=== PATIENT | male | born 1955 | race Caucasian/White ===

== ENCOUNTER 2021-11-09 22:53 | Inpatient (IN) | payer MEDICAID, SELFPAY ==
[~2021-11-09] VITALS: Ht 177.8 cm; Wt 77.1 kg
[2021-11-09 22:55] VITALS: BP_SYST 126
[2021-11-09] MEDS ORDERED: LIDOCAINE 1% 10 MG/ML, 20 ML MDV INJ ONE (23:30)
[2021-11-09] MEDS ORDERED: NALOXONE HCL 2 MG/2 ML SYR IVP ONE (23:30)
[2021-11-09] MEDS ORDERED: NACL 0.9% 1,000 ML IV ONE (23:45)
[2021-11-10 00:07] LABS: CALCIUM 9.4 mg/dL (8.4-11.0)
[2021-11-10 00:09] LABS: MEAN CORPUSCULAR HEMOGLOBIN 29 pg (27-31); MEAN CORPUSCULAR HGB CONC 33 % (32-36); MEAN CORPUSCULAR VOLUME 87 fL (79.0-98.0); PLATELET COUNT (AUTO) 78 K/uL (130-430); RED BLOOD CELL COUNT(AUTO) 7.03 MIL/uL (4.2-6.2); RED CELL DISTRIBUTION WIDTH 14.7 % (9.0-15.0); WHITE BLOOD COUNT (AUTO) 19.1 K/uL (4.8-10.8)
[2021-11-10 00:33] LABS: ANION GAP 17 (5-15); CHLORIDE 117 mmol/L (98-107); CREATININE 5.49 mg/dL (0.55-1.30); POTASSIUM 5.2 mmol/L (3.5-5.1); SODIUM SERUM 156 mmol/L (136-145)
[2021-11-10 00:35] LABS: HEMOGLOBIN 20.4 g/dL (14.0-18.0)
[2021-11-10 00:36] LABS: HEMATOCRIT 61.2 % (36-54)
[2021-11-10 00:38] LABS: ALANINE AMINOTRANSFERASE 14 U/L (12-78); ALBUMIN 3.4 g/dL (3.4-4.8); ASPARTATE AMINOTRANSFERASE 18 U/L (10-37); TOTAL BILIRUBIN 1.1 mg/dL (0.0-1.0)
[2021-11-10 00:47] LABS: GLUCOSE 435 mg/dL (70-99)
[2021-11-10 00:49] LABS: GFR AFRICAN AMERICAN 13 mL/min (>90)
[2021-11-10 00:50] LABS: UREA NITROGEN, BLOOD 158 mg/dL (8-21)
[2021-11-10 01:00] LABS: ACETAMINOPHEN < 1 ug/mL (1-30); ALCOHOL, BLOOD < 3 mg/dL (<10)
[2021-11-10] MEDS ORDERED: INSULIN REGULAR, HUMAN 10 UNITS/0.1 ML INJ IVP ONE (01:00)
[2021-11-10] MEDS ORDERED: cefTRIAXone 2 GM VIAL ONE (01:29)
[2021-11-10 01:39] LABS: ATYPICAL LYMPHOCYTES % 0 % (0-0); BAND % (MANUAL) 0 % (0-6); BASOPHILS % (MANUAL) 0 % (0-2); BLASTS, MANUAL % 0 % (0-0); EOSINOPHILS % (MANUAL) 0 % (0-7); LYMPHOCYTES % (MANUAL) 10 % (20-46); METAMYELOCYTES % 0 % (0-0); MONOCYTES % (MANUAL) 7 % (0-11); MYELOCYTES % 0 % (0-0); OTHER CELLS,MANUAL % 0 (0-0); PROMYELOCYTES % 0 % (0-0)
[2021-11-10 01:41] LABS: LYMPHOCYTES % (AUTO) 5.5 % (20.5-51.5); NEUTROPHILS % (AUTO) 85.3 % (40.0-70.0)
[2021-11-10 01:42] LABS: LYMPHOCYTES # (AUTO) 1.1 K/uL (1.0-5.5); MONOCYTES # (AUTO) 1.7 K/uL (0.0-1.0); NEUTROPHILS # (AUTO) 16.3 K/uL (1.8-7.7)
[2021-11-10 01:44] LABS: BASOPHILS % (AUTO) 0.2 % (0.0-2.0)
[2021-11-10] MEDS ORDERED: 0.45% NACL 1,000 ML IV ONE (02:30)
[2021-11-10] MEDS ORDERED: PIPERACILLIN/TAZOBACTAM 2.25 GM in NS 50 ML IV SCH (08:00)
[2021-11-10 08:39] LABS: CALCIUM 8.4 mg/dL (8.4-11.0); CREATININE 5.33 mg/dL (0.55-1.30); POTASSIUM 4.2 mmol/L (3.5-5.1)
[2021-11-10 08:43] LABS: TOTAL BILIRUBIN 0.7 mg/dL (0.0-1.0)
[2021-11-10 08:48] LABS: BASOPHILS # (AUTO) 0.1 K/uL (0.0-0.2); BASOPHILS % (AUTO) 0.2 % (0.0-2.0); EOSINOPHILS % (AUTO) 0.2 % (0.0-4.0); LYMPHOCYTES # (AUTO) 1.5 K/uL (1.0-5.5); LYMPHOCYTES % (AUTO) 7.4 % (20.5-51.5); MEAN CORPUSCULAR HEMOGLOBIN 29 pg (27-31); MEAN CORPUSCULAR HGB CONC 33 % (32-36); MEAN CORPUSCULAR VOLUME 87 fL (79.0-98.0); MONOCYTES # (AUTO) 2.2 K/uL (0.0-1.0); MONOCYTES % (AUTO) 10.4 % (1.7-9.3); NEUTROPHILS % (AUTO) 81.8 % (40.0-70.0); PLATELET COUNT (AUTO) 88 K/uL (130-430); RED BLOOD CELL COUNT(AUTO) 6.89 MIL/uL (4.2-6.2); RED CELL DISTRIBUTION WIDTH 14.6 % (9.0-15.0); WHITE BLOOD COUNT (AUTO) 20.8 K/uL (4.8-10.8)
[2021-11-10 08:55] LABS: HEMATOCRIT 60.1 % (36-54)
[2021-11-10] MEDS: 0.45% NACL 1,000 ML IV SCH ×3 (11:00→21:00)
[2021-11-10] MEDS ORDERED: PANTOPRAZOLE SODIUM 40 MG/VIAL (PROTONIX) IVP ONE (11:15)
[2021-11-10 11:45] LABS: TOTAL IRON BIND. CAPACITY 188 ug/dL (250-450)
[2021-11-10] MEDS ORDERED: INSULIN REGULAR, HUMAN 10 UNITS/0.1 ML INJ ONE (13:11)
[2021-11-10] MEDS: INSULIN REGULAR, HUMAN 100 UNITS/ML, 10 ML VIAL (humuLIN R) SUBCUT PRN (13:22)
[2021-11-10] MEDS ORDERED: PIPERACILLIN/TAZOBACTAM 2.25 GM VIAL IV ONE ×2 (14:04)
[2021-11-10] MEDS: PIPERACILLIN/TAZOBACTAM 2.25 GM in NS 50 ML IV SCH ×2 (14:56→23:17)
[2021-11-10 15:21] LABS: BILIRUBIN,URINE NEGATIVE (NEGATIVE); BLOOD, URINE 2+ (NEGATIVE); CLARITY/URINE CLEAR (CLEAR); COLOR,URINE YELLOW (YELLOW); GLUCOSE,URINE NEGATIVE (NEGATIVE); KETONES,URINE NEGATIVE (NEGATIVE); LEUKOCYTE ESTERASE ,URINE 1+ (NEGATIVE); NITRITE, URINE NEGATIVE (NEGATIVE); PROTEIN URINE 1+ (NEGATIVE); UROBILINOGEN,URINE 0.2 (0.2-1.0)
[2021-11-10 15:29] LABS: BACTERIA,URINE FEW /HPF (None Seen); MUCUS,URINE None Seen /LPF (None Seen)
[2021-11-10 15:33] LABS: BARBITURATE, URINE NEGATIVE (NEG <=200); BENZODIAZEPINE, URINE NEGATIVE (NEG <=150); CANNABINOID, URINE NEGATIVE (NEG <=50); COCAINE, URINE NEGATIVE (NEG <=150); METHAMPHETAMINES SCREEN,URINE POSITIVE (NEG <=500); OPIATE, URINE NEGATIVE (NEG <=100); PHENCYCLIDINE SCREEN,URINE NEGATIVE (NEG <=25); UR TRICYCLIC ANTIDEPRESSANTS NEGATIVE (NEG <=300); URINE AMPHETAMINE NEGATIVE (NEG <=500); URINE METHADONE NEGATIVE (NEG <=200); URINE OXYCODONE SCREEN NEGATIVE (NEG <=100); URINE PROPOXYPHENE SCREEN NEGATIVE (NEG <=300)
[2021-11-10 17:00] VITALS: BP_SYST 136
[2021-11-10 18:06] VITALS: BP_SYST 136
[2021-11-10 18:29] VITALS: BP_SYST 136
[2021-11-10 20:00] VITALS: BP_SYST 106
[2021-11-10] MEDS: PANTOPRAZOLE SODIUM 40 MG/VIAL (PROTONIX) IVP SCH (23:25)
[2021-11-10 23:59] LABS: BARBITURATE, URINE NEGATIVE (NEG <=200)
[2021-11-11] VITALS: BP_SYST 108
[2021-11-11] LABS: BENZODIAZEPINE, URINE NEGATIVE (NEG <=150); CANNABINOID, URINE NEGATIVE (NEG <=50); COCAINE, URINE NEGATIVE (NEG <=150); METHAMPHETAMINES SCREEN,URINE POSITIVE (NEG <=500); OPIATE, URINE NEGATIVE (NEG <=100); PHENCYCLIDINE SCREEN,URINE NEGATIVE (NEG <=25); UR TRICYCLIC ANTIDEPRESSANTS NEGATIVE (NEG <=300); URINE AMPHETAMINE NEGATIVE (NEG <=500); URINE METHADONE NEGATIVE (NEG <=200); URINE OXYCODONE SCREEN NEGATIVE (NEG <=100); URINE PROPOXYPHENE SCREEN NEGATIVE (NEG <=300)
[2021-11-11] MEDS: 0.45% NACL 1,000 ML IV SCH ×5 (00:39→21:48)
[2021-11-11 05:00] VITALS: BP_SYST 131
[2021-11-11] MEDS: PIPERACILLIN/TAZOBACTAM 2.25 GM in NS 50 ML IV SCH ×4 (05:06→21:07)
[2021-11-11 08:00] VITALS: BP_SYST 115
[2021-11-11] MEDS: PANTOPRAZOLE SODIUM 40 MG/VIAL (PROTONIX) IVP SCH (08:54)
[2021-11-11] MEDS ORDERED: PANTOPRAZOLE SODIUM 40 MG/VIAL (PROTONIX) IVP ONE (09:00)
[2021-11-11 09:07] LABS: FOLATE (FOLIC ACID) 16.7 ng/mL (>3.0)
[2021-11-11] MEDS ORDERED: D5W 1,000 ML IV PRN (11:00)
[2021-11-11] MEDS ORDERED: GLUCOSE (DEXTROSE) ORAL GEL -Adults PO PRN (11:00)
[2021-11-11] MEDS ORDERED: DEXTROSE 50%-WATER 50 ML DISP.SYRIN IVP PRN (11:00)
[2021-11-11 12:00] VITALS: BP_SYST 122
[2021-11-11 15:14] LABS: CALCIUM 7.6 mg/dL (8.4-11.0); CREATININE 4.65 mg/dL (0.55-1.30); POTASSIUM 4.4 mmol/L (3.5-5.1)
[2021-11-11 15:20] LABS: ALBUMIN 2.2 g/dL (3.4-4.8); TOTAL BILIRUBIN 1.2 mg/dL (0.0-1.0)
[2021-11-11] MEDS: ASPIRIN 81 MG TAB.CHEW PO ONE ×2 (16:13→16:45)
[2021-11-11 16:52] LABS: RED BLOOD CELL COUNT(AUTO) 5.67 MIL/uL (4.2-6.2); WHITE BLOOD COUNT (AUTO) 23.1 K/uL (4.8-10.8)
[2021-11-11 16:53] LABS: HEMATOCRIT 49.7 % (36-54); MEAN CORPUSCULAR HEMOGLOBIN 28 pg (27-31); MEAN CORPUSCULAR HGB CONC 32 % (32-36); MEAN CORPUSCULAR VOLUME 88 fL (79.0-98.0); PLATELET COUNT (AUTO) 48 K/uL (130-430); RED CELL DISTRIBUTION WIDTH 14.6 % (9.0-15.0)
[2021-11-11 16:58] VITALS: BP_SYST 120
[2021-11-11] MEDS: INSULIN REGULAR, HUMAN 100 UNITS/ML, 10 ML VIAL (humuLIN R) SUBCUT PRN ×2 (18:31→21:16)
[2021-11-11 19:49] LABS: BAND % (MANUAL) 5 % (0-6); BASOPHILS % (MANUAL) 0 % (0-2); EOSINOPHILS % (MANUAL) 0 % (0-7); LYMPHOCYTES % (MANUAL) 2 % (20-46); MONOCYTES % (MANUAL) 5 % (0-11)
[2021-11-11 20:00] VITALS: BP_SYST 157
[2021-11-11] MEDS: LINEZOLID 300 ML IV SCH (21:43)
[2021-11-12 01:35] VITALS: BP_SYST 90
[2021-11-12] MEDS: 0.45% NACL 1,000 ML IV SCH ×4 (01:59→20:03)
[2021-11-12] MEDS: PIPERACILLIN/TAZOBACTAM 2.25 GM in NS 50 ML IV SCH ×4 (01:59→20:00)
[2021-11-12 06:42] LABS: BASOPHILS % (AUTO) 0.2 % (0.0-2.0); EOSINOPHILS # (AUTO) 0.1 K/uL (0.0-0.4); EOSINOPHILS % (AUTO) 0.6 % (0.0-4.0); HEMATOCRIT 46.5 % (36-54); HEMOGLOBIN 15.3 g/dL (14.0-18.0); LYMPHOCYTES # (AUTO) 1.3 K/uL (1.0-5.5); LYMPHOCYTES % (AUTO) 6.7 % (20.5-51.5); MEAN CORPUSCULAR HEMOGLOBIN 29 pg (27-31); MEAN CORPUSCULAR HGB CONC 33 % (32-36); MEAN CORPUSCULAR VOLUME 87 fL (79.0-98.0); MONOCYTES # (AUTO) 2.3 K/uL (0.0-1.0); MONOCYTES % (AUTO) 11.4 % (1.7-9.3); NEUTROPHILS # (AUTO) 16.3 K/uL (1.8-7.7); NEUTROPHILS % (AUTO) 81.1 % (40.0-70.0); RED BLOOD CELL COUNT(AUTO) 5.35 MIL/uL (4.2-6.2); RED CELL DISTRIBUTION WIDTH 14.7 % (9.0-15.0); WHITE BLOOD COUNT (AUTO) 20.1 K/uL (4.8-10.8)
[2021-11-12 07:31] LABS: CREATININE 3.59 mg/dL (0.55-1.30); POTASSIUM 4.1 mmol/L (3.5-5.1); TOTAL BILIRUBIN 1.3 mg/dL (0.0-1.0)
[2021-11-12 07:34] LABS: PLATELET COUNT (AUTO) 46 K/uL (130-430)
[2021-11-12 08:00] VITALS: BP_SYST 88
[2021-11-12 08:15] VITALS: BP_SYST 121
[2021-11-12] MEDS ORDERED: 0.45% NACL 1,000 ML IV ONE (08:15)
[2021-11-12] MEDS: PANTOPRAZOLE SODIUM 40 MG/VIAL (PROTONIX) IVP SCH (08:20)
[2021-11-12] MEDS: NEPHROVITE, (FOLIC ACID/VITAMIN B COMP W-C 1 TAB) PO SCH (08:20)
[2021-11-12] MEDS ORDERED: ASPIRIN 81 MG TAB.CHEW PO SCH (09:00)
[2021-11-12] MEDS: LINEZOLID 300 ML IV SCH ×2 (09:04→22:29)
[2021-11-12 09:45] LABS: CKMB RELATIVE INDEX 0.1 (0.0-2.9); CREATINE KINASE MB 0.4 ng/mL (0-3.6)
[2021-11-12 12:27] VITALS: BP_SYST 105
[2021-11-12 16:26] VITALS: BP_SYST 104
[2021-11-12] MEDS: INSULIN REGULAR, HUMAN 100 UNITS/ML, 10 ML VIAL (humuLIN R) SUBCUT PRN ×2 (17:52→22:36)
[2021-11-12 20:00] VITALS: BP_SYST 96
[2021-11-13] MEDS: PIPERACILLIN/TAZOBACTAM 2.25 GM in NS 50 ML IV SCH ×4 (02:30→21:25)
[2021-11-13] MEDS: 0.45% NACL 1,000 ML IV SCH ×4 (02:38→20:18)
[2021-11-13 06:40] LABS: BASOPHILS # (AUTO) 0.1 K/uL (0.0-0.2); BASOPHILS % (AUTO) 0.4 % (0.0-2.0); EOSINOPHILS # (AUTO) 0.1 K/uL (0.0-0.4); EOSINOPHILS % (AUTO) 0.3 % (0.0-4.0); HEMATOCRIT 45.3 % (36-54); HEMOGLOBIN 15.3 g/dL (14.0-18.0); LYMPHOCYTES # (AUTO) 0.9 K/uL (1.0-5.5); LYMPHOCYTES % (AUTO) 4.1 % (20.5-51.5); MEAN CORPUSCULAR HEMOGLOBIN 29 pg (27-31); MEAN CORPUSCULAR HGB CONC 34 % (32-36); MEAN CORPUSCULAR VOLUME 86 fL (79.0-98.0); MONOCYTES # (AUTO) 2.5 K/uL (0.0-1.0); MONOCYTES % (AUTO) 11.1 % (1.7-9.3); NEUTROPHILS # (AUTO) 18.8 K/uL (1.8-7.7); PLATELET COUNT (AUTO) 57 K/uL (130-430); RED BLOOD CELL COUNT(AUTO) 5.29 MIL/uL (4.2-6.2); RED CELL DISTRIBUTION WIDTH 14.3 % (9.0-15.0); WHITE BLOOD COUNT (AUTO) 22.4 K/uL (4.8-10.8)
[2021-11-13 06:56] LABS: ALBUMIN 1.8 g/dL (3.4-4.8); CREATININE 2.61 mg/dL (0.55-1.30); POTASSIUM 3.8 mmol/L (3.5-5.1)
[2021-11-13 08:00] VITALS: BP_SYST 99
[2021-11-13] MEDS: PANTOPRAZOLE SODIUM 40 MG/VIAL (PROTONIX) IVP SCH (08:01)
[2021-11-13] MEDS: NEPHROVITE, (FOLIC ACID/VITAMIN B COMP W-C 1 TAB) PO SCH (08:01)
[2021-11-13] MEDS: LINEZOLID 300 ML IV SCH (09:07)
[2021-11-13] MEDS ORDERED: NS 500 ML IV ONE (09:15)
[2021-11-13 09:25] LABS: NEUTROPHILS % (AUTO) 84.1 % (40.0-70.0)
[2021-11-13] MEDS: INSULIN REGULAR, HUMAN 100 UNITS/ML, 10 ML VIAL (humuLIN R) SUBCUT PRN ×3 (11:20→21:34)
[2021-11-13 11:26] VITALS: BP_SYST 100
[2021-11-13 17:16] VITALS: BP_SYST 112
[2021-11-13 20:00] VITALS: BP_SYST 124
[2021-11-13 22:20] VITALS: BP_SYST 111
[2021-11-13] MEDS: ACETAMINOPHEN 325 MG TABLET PO PRN (23:43)
[2021-11-14 00:59] VITALS: BP_SYST 133
[2021-11-14] MEDS: PIPERACILLIN/TAZOBACTAM 2.25 GM in NS 50 ML IV SCH ×4 (02:13→20:23)
[2021-11-14] MEDS: INSULIN REGULAR, HUMAN 100 UNITS/ML, 10 ML VIAL (humuLIN R) SUBCUT PRN ×4 (06:41→20:39)
[2021-11-14] MEDS: 0.45% NACL 1,000 ML IV SCH ×2 (06:48→19:53)
[2021-11-14 07:48] LABS: BASOPHILS # (AUTO) 0.1 K/uL (0.0-0.2); BASOPHILS % (AUTO) 0.2 % (0.0-2.0); EOSINOPHILS # (AUTO) 0.2 K/uL (0.0-0.4); EOSINOPHILS % (AUTO) 0.8 % (0.0-4.0); HEMATOCRIT 42.2 % (36-54); HEMOGLOBIN 14.3 g/dL (14.0-18.0); LYMPHOCYTES % (AUTO) 4.6 % (20.5-51.5); MEAN CORPUSCULAR HEMOGLOBIN 29 pg (27-31); MEAN CORPUSCULAR HGB CONC 34 % (32-36); MEAN CORPUSCULAR VOLUME 86 fL (79.0-98.0); MONOCYTES # (AUTO) 3.2 K/uL (0.0-1.0); MONOCYTES % (AUTO) 14.4 % (1.7-9.3); NEUTROPHILS # (AUTO) 18.1 K/uL (1.8-7.7); PLATELET COUNT (AUTO) 68 K/uL (130-430); RED CELL DISTRIBUTION WIDTH 14.5 % (9.0-15.0); WHITE BLOOD COUNT (AUTO) 22.6 K/uL (4.8-10.8)
[2021-11-14 08:00] VITALS: BP_SYST 109
[2021-11-14 08:42] LABS: ALBUMIN 1.5 g/dL (3.4-4.8); CREATININE 2.07 mg/dL (0.55-1.30); POTASSIUM 3.4 mmol/L (3.5-5.1); TOTAL BILIRUBIN 0.9 mg/dL (0.0-1.0)
[2021-11-14] MEDS: NEPHROVITE, (FOLIC ACID/VITAMIN B COMP W-C 1 TAB) PO SCH (09:33)
[2021-11-14] MEDS: PANTOPRAZOLE SODIUM 40 MG TAB PO SCH (09:34)
[2021-11-14] MEDS: ATORVASTATIN 10 MG TABLET PO SCH (09:34)
[2021-11-14] MEDS ORDERED: POTASSIUM CHLORIDE 20 MEQ TAB.PRT.SR PO ONE (11:00)
[2021-11-14 12:48] VITALS: BP_SYST 117
[2021-11-14] MEDS ORDERED: MENTHOL/ZINC OXIDE 113 GM OINT. TP PRN (15:00)
[2021-11-14] MEDS ORDERED: BALSAM PERU/CASTOR OIL 56.7 GM OINT...G. TP ONE (15:30)
[2021-11-14] MEDS: LINEZOLID 300 ML IV SCH (16:19)
[2021-11-14 16:45] VITALS: BP_SYST 122
[2021-11-14] MEDS: NYSTATIN 15 GM TOPICAL POWDER TP SCH ×2 (18:24→20:25)
[2021-11-14 20:00] VITALS: BP_SYST 101
[2021-11-15 01:52] VITALS: BP_SYST 143
[2021-11-15] MEDS: PIPERACILLIN/TAZOBACTAM 2.25 GM in NS 50 ML IV SCH ×2 (02:33→10:05)
[2021-11-15] MEDS: LINEZOLID 300 ML IV SCH (05:08)
[2021-11-15 06:29] LABS: BASOPHILS % (AUTO) 0.1 % (0.0-2.0); EOSINOPHILS # (AUTO) 0.2 K/uL (0.0-0.4); EOSINOPHILS % (AUTO) 0.8 % (0.0-4.0); HEMOGLOBIN 15.6 g/dL (14.0-18.0); LYMPHOCYTES # (AUTO) 1.2 K/uL (1.0-5.5); MEAN CORPUSCULAR HEMOGLOBIN 29 pg (27-31); MEAN CORPUSCULAR HGB CONC 34 % (32-36); MEAN CORPUSCULAR VOLUME 86 fL (79.0-98.0); MONOCYTES # (AUTO) 3.7 K/uL (0.0-1.0); NEUTROPHILS % (AUTO) 78.1 % (40.0-70.0); PLATELET COUNT (AUTO) 82 K/uL (130-430); RED BLOOD CELL COUNT(AUTO) 5.37 MIL/uL (4.2-6.2); RED CELL DISTRIBUTION WIDTH 14.4 % (9.0-15.0); WHITE BLOOD COUNT (AUTO) 23.1 K/uL (4.8-10.8)
[2021-11-15] MEDS: INSULIN REGULAR, HUMAN 100 UNITS/ML, 10 ML VIAL (humuLIN R) SUBCUT PRN ×4 (06:52→21:40)
[2021-11-15 07:03] LABS: ALBUMIN 1.4 g/dL (3.4-4.8); CALCIUM 7.9 mg/dL (8.4-11.0); CREATININE 1.73 mg/dL (0.55-1.30); POTASSIUM 3.4 mmol/L (3.5-5.1)
[2021-11-15 07:50] VITALS: BP_SYST 103
[2021-11-15] MEDS: NEPHROVITE, (FOLIC ACID/VITAMIN B COMP W-C 1 TAB) PO SCH (10:05)
[2021-11-15] MEDS: ATORVASTATIN 10 MG TABLET PO SCH (10:05)
[2021-11-15] MEDS: PANTOPRAZOLE SODIUM 40 MG TAB PO SCH (10:05)
[2021-11-15] MEDS: NYSTATIN 15 GM TOPICAL POWDER TP SCH ×2 (10:06→21:41)
[2021-11-15] MEDS: BALSAM PERU/CASTOR OIL 56.7 GM OINT...G. TP SCH (10:07)
[2021-11-15] MEDS ORDERED: NS 500 ML IV ONE (12:15)
[2021-11-15 12:40] VITALS: BP_SYST 101
[2021-11-15] MEDS ORDERED: INSULIN GLARGINE 100 UNITS/ML 10 ML VIAL SUBCUT ONE (13:30)
[2021-11-15] MEDS ORDERED: ASPIRIN 81 MG TABLET(ECOTRIN) PO ONE (13:45)
[2021-11-15] MEDS: cefTRIAXone 1 GM in D5W 50 ML IV SCH (14:51)
[2021-11-15] MEDS: 0.45% NACL 1,000 ML IV SCH (14:52)
[2021-11-15 16:58] VITALS: BP_SYST 104
[2021-11-15 20:10] VITALS: BP_SYST 103
[2021-11-15] MEDS: ACETAMINOPHEN 325 MG TABLET PO PRN (22:31)
[2021-11-16 01:44] VITALS: BP_SYST 100
[2021-11-16] MEDS: 0.45% NACL 1,000 ML IV SCH ×3 (02:52→17:48)
[2021-11-16 06:47] LABS: BASOPHILS % (AUTO) 0.5 % (0.0-2.0); EOSINOPHILS # (AUTO) 0.5 K/uL (0.0-0.4); EOSINOPHILS % (AUTO) 2.4 % (0.0-4.0); HEMATOCRIT 43.5 % (36-54); HEMOGLOBIN 14.7 g/dL (14.0-18.0); LYMPHOCYTES # (AUTO) 1.5 K/uL (1.0-5.5); LYMPHOCYTES % (AUTO) 6.9 % (20.5-51.5); MEAN CORPUSCULAR HEMOGLOBIN 29 pg (27-31); MEAN CORPUSCULAR HGB CONC 34 % (32-36); MEAN CORPUSCULAR VOLUME 85 fL (79.0-98.0); MONOCYTES % (AUTO) 13.5 % (1.7-9.3); NEUTROPHILS # (AUTO) 17.3 K/uL (1.8-7.7); NEUTROPHILS % (AUTO) 76.7 % (40.0-70.0); PLATELET COUNT (AUTO) 103 K/uL (130-430); RED BLOOD CELL COUNT(AUTO) 5.12 MIL/uL (4.2-6.2); RED CELL DISTRIBUTION WIDTH 14.3 % (9.0-15.0); WHITE BLOOD COUNT (AUTO) 22.5 K/uL (4.8-10.8)
[2021-11-16] MEDS: INSULIN REGULAR, HUMAN 100 UNITS/ML, 10 ML VIAL (humuLIN R) SUBCUT PRN ×4 (06:50→21:29)
[2021-11-16 07:34] LABS: ALBUMIN 1.2 g/dL (3.4-4.8); CALCIUM 7.6 mg/dL (8.4-11.0); CREATININE 1.57 mg/dL (0.55-1.30); TOTAL BILIRUBIN 0.6 mg/dL (0.0-1.0)
[2021-11-16 07:40] VITALS: BP_SYST 119
[2021-11-16] MEDS ORDERED: INSULIN GLARGINE 100 UNITS/ML 10 ML VIAL SUBCUT SCH (09:00)
[2021-11-16] MEDS: ATORVASTATIN 10 MG TABLET PO SCH (09:46)
[2021-11-16] MEDS: NEPHROVITE, (FOLIC ACID/VITAMIN B COMP W-C 1 TAB) PO SCH (09:47)
[2021-11-16] MEDS: ASPIRIN 81 MG TABLET(ECOTRIN) PO SCH (09:47)
[2021-11-16] MEDS: BALSAM PERU/CASTOR OIL 56.7 GM OINT...G. TP SCH (09:48)
[2021-11-16] MEDS: NYSTATIN 15 GM TOPICAL POWDER TP SCH ×2 (09:49→22:34)
[2021-11-16] MEDS: PANTOPRAZOLE SODIUM 40 MG TAB PO SCH (09:50)
[2021-11-16 12:05] VITALS: BP_SYST 135
[2021-11-16 13:09] LABS: BASOPHILS # (AUTO) 0.1 K/uL (0.0-0.2)
[2021-11-16 13:17] LABS: POTASSIUM 2.9 mmol/L (3.5-5.1)
[2021-11-16] MEDS ORDERED: POTASSIUM CHLORIDE 20 MEQ TAB.PRT.SR PO ONE ×2 (13:45→19:15)
[2021-11-16] MEDS: cefTRIAXone 1 GM in D5W 50 ML IV SCH (14:11)
[2021-11-16 16:05] VITALS: BP_SYST 134
[2021-11-16 19:00] VITALS: BP_SYST 129
[2021-11-16] MEDS: INSULIN GLARGINE 100 UNITS/ML 10 ML VIAL SUBCUT SCH (21:31)
[2021-11-16] MEDS ORDERED: AZITHROMYCIN 500 MG/VIAL (ZITHROMAX) IV ONE (22:04)
[2021-11-16] MEDS: AZITHROMYCIN 500 MG in NS 250 ML IV SCH (22:35)
[2021-11-16] MEDS ORDERED: ONDANSETRON HCL 4 MG/2 ML VIAL IVP PRN (22:45)
[2021-11-17] MEDS ORDERED: PIPERACILLIN/TAZOBACTAM 3.375 GM/VIAL (ZOSYN) IV ONE (01:09)
[2021-11-17] MEDS: PIPERACILLIN/TAZO 3.375/DEX-IS 50 ML IV SCH ×4 (01:19→17:11)
[2021-11-17 01:44] VITALS: BP_SYST 135
[2021-11-17] MEDS: 0.45% NACL 1,000 ML IV SCH ×3 (03:06→17:13)
[2021-11-17] MEDS: INSULIN REGULAR, HUMAN 100 UNITS/ML, 10 ML VIAL (humuLIN R) SUBCUT PRN ×3 (06:23→21:34)
[2021-11-17 06:33] LABS: ALBUMIN 1.1 g/dL (3.4-4.8); CALCIUM 7.3 mg/dL (8.4-11.0); CREATININE 1.56 mg/dL (0.55-1.30); TOTAL BILIRUBIN 0.7 mg/dL (0.0-1.0)
[2021-11-17 08:20] VITALS: BP_SYST 99
[2021-11-17] MEDS: ATORVASTATIN 10 MG TABLET PO SCH (08:52)
[2021-11-17] MEDS: ASPIRIN 81 MG TABLET(ECOTRIN) PO SCH (08:52)
[2021-11-17] MEDS: POTASSIUM CHLORIDE 20 MEQ TAB.PRT.SR PO SCH (08:52)
[2021-11-17] MEDS: PANTOPRAZOLE SODIUM 40 MG TAB PO SCH (08:52)
[2021-11-17] MEDS: NEPHROVITE, (FOLIC ACID/VITAMIN B COMP W-C 1 TAB) PO SCH (08:52)
[2021-11-17] MEDS: BALSAM PERU/CASTOR OIL 56.7 GM OINT...G. TP SCH (08:54)
[2021-11-17] MEDS: NYSTATIN 15 GM TOPICAL POWDER TP SCH ×2 (08:55→21:24)
[2021-11-17] MEDS: INSULIN GLARGINE 100 UNITS/ML 10 ML VIAL SUBCUT SCH ×2 (08:57→21:30)
[2021-11-17 09:22] LABS: BASOPHILS # (AUTO) 0.1 K/uL (0.0-0.2); BASOPHILS % (AUTO) 0.3 % (0.0-2.0); EOSINOPHILS # (AUTO) 0.1 K/uL (0.0-0.4); EOSINOPHILS % (AUTO) 0.3 % (0.0-4.0); HEMATOCRIT 42.2 % (36-54); HEMOGLOBIN 14.6 g/dL (14.0-18.0); MEAN CORPUSCULAR HEMOGLOBIN 29 pg (27-31); MEAN CORPUSCULAR HGB CONC 35 % (32-36); MEAN CORPUSCULAR VOLUME 85 fL (79.0-98.0); MONOCYTES # (AUTO) 1.9 K/uL (0.0-1.0); MONOCYTES % (AUTO) 9.4 % (1.7-9.3); NEUTROPHILS # (AUTO) 17.5 K/uL (1.8-7.7); PLATELET COUNT (AUTO) 137 K/uL (130-430); RED BLOOD CELL COUNT(AUTO) 4.98 MIL/uL (4.2-6.2); WHITE BLOOD COUNT (AUTO) 20.6 K/uL (4.8-10.8)
[2021-11-17 11:28] VITALS: BP_SYST 140
[2021-11-17] MEDS ORDERED: D5LR 1,000 ML IV SCH (12:15)
[2021-11-17] MEDS ORDERED: LORazepam 2 MG/ML VIAL IM ONE (12:15)
[2021-11-17] MEDS ORDERED: POTASSIUM CHLORIDE 40 MEQ in NS 250 ML IV ONE (12:15)
[2021-11-17 16:00] VITALS: BP_SYST 149
[2021-11-17] MEDS: AZITHROMYCIN 500 MG in NS 250 ML IV SCH (18:18)
[2021-11-17] MEDS ORDERED: POTASSIUM CHLORIDE 20 MEQ/PKT PACKET PO ONE (20:00)
[2021-11-17 20:10] VITALS: BP_SYST 130
[2021-11-18] MEDS: PIPERACILLIN/TAZO 3.375/DEX-IS 50 ML IV SCH ×4 (00:01→17:56)
[2021-11-18 00:25] VITALS: BP_SYST 123
[2021-11-18] MEDS: 0.45% NACL 1,000 ML IV SCH ×2 (05:50→21:16)
[2021-11-18 06:15] LABS: HEMATOCRIT 39.9 % (36-54); HEMOGLOBIN 13.4 g/dL (14.0-18.0); MEAN CORPUSCULAR HEMOGLOBIN 29 pg (27-31); MEAN CORPUSCULAR HGB CONC 34 % (32-36); MEAN CORPUSCULAR VOLUME 85 fL (79.0-98.0); PLATELET COUNT (AUTO) 183 K/uL (130-430); RED BLOOD CELL COUNT(AUTO) 4.71 MIL/uL (4.2-6.2); RED CELL DISTRIBUTION WIDTH 14.1 % (9.0-15.0); WHITE BLOOD COUNT (AUTO) 21.6 K/uL (4.8-10.8)
[2021-11-18] MEDS: INSULIN REGULAR, HUMAN 100 UNITS/ML, 10 ML VIAL (humuLIN R) SUBCUT PRN ×4 (06:34→23:30)
[2021-11-18 06:46] LABS: CALCIUM 8.1 mg/dL (8.4-11.0); CREATININE 1.49 mg/dL (0.55-1.30); POTASSIUM 3.4 mmol/L (3.5-5.1); TOTAL BILIRUBIN 0.7 mg/dL (0.0-1.0)
[2021-11-18 08:00] VITALS: BP_SYST 100
[2021-11-18] MEDS: NEPHROVITE, (FOLIC ACID/VITAMIN B COMP W-C 1 TAB) PO SCH (09:20)
[2021-11-18] MEDS: POTASSIUM CHLORIDE 20 MEQ TAB.PRT.SR PO SCH (09:20)
[2021-11-18] MEDS: PANTOPRAZOLE SODIUM 40 MG TAB PO SCH (09:20)
[2021-11-18] MEDS: ATORVASTATIN 10 MG TABLET PO SCH (09:20)
[2021-11-18] MEDS: ASPIRIN 81 MG TABLET(ECOTRIN) PO SCH (09:20)
[2021-11-18] MEDS: BALSAM PERU/CASTOR OIL 56.7 GM OINT...G. TP SCH (09:23)
[2021-11-18] MEDS: NYSTATIN 15 GM TOPICAL POWDER TP SCH ×2 (09:24→23:41)
[2021-11-18 12:31] LABS: BAND % (MANUAL) 10 % (0-6); BASOPHILS % (MANUAL) 0 % (0-2); EOSINOPHILS % (MANUAL) 6 % (0-7); LYMPHOCYTES % (MANUAL) 7 % (20-46); MONOCYTES % (MANUAL) 7 % (0-11)
[2021-11-18 12:32] LABS: WBC MORPHOLOGY TOXIC VACUOLATION
[2021-11-18 12:46] VITALS: BP_SYST 113
[2021-11-18] MEDS: INSULIN GLARGINE 100 UNITS/ML 10 ML VIAL SUBCUT SCH ×2 (13:47→23:28)
[2021-11-18 16:44] VITALS: BP_SYST 116
[2021-11-18] MEDS: AZITHROMYCIN 500 MG in NS 250 ML IV SCH (17:56)
[2021-11-19] MEDS: PIPERACILLIN/TAZO 3.375/DEX-IS 50 ML IV SCH ×4 (00:28→18:05)
[2021-11-19 01:21] VITALS: BP_SYST 120
[2021-11-19] MEDS: 0.45% NACL 1,000 ML IV SCH (06:20)
[2021-11-19] MEDS: INSULIN REGULAR, HUMAN 100 UNITS/ML, 10 ML VIAL (humuLIN R) SUBCUT PRN ×2 (06:28→22:43)
[2021-11-19 06:55] LABS: BASOPHILS # (AUTO) 0.1 K/uL (0.0-0.2); BASOPHILS % (AUTO) 0.4 % (0.0-2.0); EOSINOPHILS # (AUTO) 0.7 K/uL (0.0-0.4); EOSINOPHILS % (AUTO) 3.5 % (0.0-4.0); HEMATOCRIT 39.2 % (36-54); HEMOGLOBIN 13.2 g/dL (14.0-18.0); LYMPHOCYTES # (AUTO) 1.5 K/uL (1.0-5.5); LYMPHOCYTES % (AUTO) 7.1 % (20.5-51.5); MEAN CORPUSCULAR HEMOGLOBIN 29 pg (27-31); MEAN CORPUSCULAR HGB CONC 34 % (32-36); MEAN CORPUSCULAR VOLUME 85 fL (79.0-98.0); MONOCYTES # (AUTO) 1.7 K/uL (0.0-1.0); PLATELET COUNT (AUTO) 260 K/uL (130-430); RED BLOOD CELL COUNT(AUTO) 4.62 MIL/uL (4.2-6.2); RED CELL DISTRIBUTION WIDTH 14.1 % (9.0-15.0)
[2021-11-19 07:30] LABS: CREATININE 1.39 mg/dL (0.55-1.30); POTASSIUM 3.4 mmol/L (3.5-5.1)
[2021-11-19] MEDS: ATORVASTATIN 10 MG TABLET PO SCH (09:36)
[2021-11-19] MEDS: POTASSIUM CHLORIDE 20 MEQ TAB.PRT.SR PO SCH (09:36)
[2021-11-19] MEDS: NEPHROVITE, (FOLIC ACID/VITAMIN B COMP W-C 1 TAB) PO SCH (09:36)
[2021-11-19] MEDS: PANTOPRAZOLE SODIUM 40 MG TAB PO SCH (09:36)
[2021-11-19] MEDS: BALSAM PERU/CASTOR OIL 56.7 GM OINT...G. TP SCH (09:36)
[2021-11-19] MEDS: NYSTATIN 15 GM TOPICAL POWDER TP SCH ×2 (09:36→22:49)
[2021-11-19] MEDS: ASPIRIN 81 MG TABLET(ECOTRIN) PO SCH (09:36)
[2021-11-19] MEDS: INSULIN GLARGINE 100 UNITS/ML 10 ML VIAL SUBCUT SCH ×2 (09:38→22:46)
[2021-11-19 13:15] VITALS: BP_SYST 114
[2021-11-19 16:28] VITALS: BP_SYST 118
[2021-11-19] MEDS: AZITHROMYCIN 500 MG in NS 250 ML IV SCH (19:42)
[2021-11-19 20:00] VITALS: BP_SYST 113
[2021-11-20] MEDS: PIPERACILLIN/TAZO 3.375/DEX-IS 50 ML IV SCH ×2 (00:32→05:56)
[2021-11-20 07:16] LABS: BASOPHILS # (AUTO) 0.1 K/uL (0.0-0.2); BASOPHILS % (AUTO) 0.8 % (0.0-2.0); EOSINOPHILS # (AUTO) 0.5 K/uL (0.0-0.4); EOSINOPHILS % (AUTO) 2.8 % (0.0-4.0); HEMATOCRIT 38.4 % (36-54); HEMOGLOBIN 12.9 g/dL (14.0-18.0); LYMPHOCYTES # (AUTO) 1.8 K/uL (1.0-5.5); MEAN CORPUSCULAR HEMOGLOBIN 29 pg (27-31); MEAN CORPUSCULAR HGB CONC 34 % (32-36); MEAN CORPUSCULAR VOLUME 85 fL (79.0-98.0); MONOCYTES # (AUTO) 1.4 K/uL (0.0-1.0); MONOCYTES % (AUTO) 7.2 % (1.7-9.3); NEUTROPHILS # (AUTO) 15.7 K/uL (1.8-7.7); PLATELET COUNT (AUTO) 321 K/uL (130-430); RED BLOOD CELL COUNT(AUTO) 4.54 MIL/uL (4.2-6.2); WHITE BLOOD COUNT (AUTO) 19.5 K/uL (4.8-10.8)
[2021-11-20 07:30] VITALS: BP_SYST 122
[2021-11-20 07:42] LABS: CALCIUM 8.1 mg/dL (8.4-11.0); CREATININE 1.2 mg/dL (0.55-1.30); POTASSIUM 3.6 mmol/L (3.5-5.1); TOTAL BILIRUBIN 0.8 mg/dL (0.0-1.0)
[2021-11-20 09:02] LABS: NEUTROPHILS % (AUTO) 80.2 % (40.0-70.0)
[2021-11-20] MEDS: PANTOPRAZOLE SODIUM 40 MG TAB PO SCH (09:29)
[2021-11-20] MEDS: ASPIRIN 81 MG TABLET(ECOTRIN) PO SCH (09:29)
[2021-11-20] MEDS: ATORVASTATIN 10 MG TABLET PO SCH (09:30)
[2021-11-20] MEDS: BALSAM PERU/CASTOR OIL 56.7 GM OINT...G. TP SCH (09:30)
[2021-11-20] MEDS: NEPHROVITE, (FOLIC ACID/VITAMIN B COMP W-C 1 TAB) PO SCH (09:30)
[2021-11-20] MEDS: NYSTATIN 15 GM TOPICAL POWDER TP SCH ×2 (09:30→21:00)
[2021-11-20] MEDS: POTASSIUM CHLORIDE 20 MEQ TAB.PRT.SR PO SCH (09:30)
[2021-11-20] MEDS: INSULIN GLARGINE 100 UNITS/ML 10 ML VIAL SUBCUT SCH ×2 (09:35→21:06)
[2021-11-20 11:44] VITALS: BP_SYST 123
[2021-11-20] MEDS ORDERED: AZITHROMYCIN 500 MG in NS 250 ML IV SCH (13:15)
[2021-11-20] MEDS: INSULIN REGULAR, HUMAN 100 UNITS/ML, 10 ML VIAL (humuLIN R) SUBCUT PRN ×2 (13:15→17:28)
[2021-11-20] MEDS ORDERED: IPRATROPIUM/ALBUTEROL SULFATE 3 ML AMPUL.NEB (DUONEB) INH PRN (13:45)
[2021-11-20] MEDS ORDERED: CEFEPIME 1 GM in D5W 50 ML IV ONE (14:00)
[2021-11-20] MEDS ORDERED: LINEZOLID 300 ML IV ONE (14:00)
[2021-11-20] MEDS: 0.45% NACL 1,000 ML IV SCH (14:21)
[2021-11-20 16:33] VITALS: BP_SYST 126
[2021-11-20 20:00] VITALS: BP_SYST 126
[2021-11-20] MEDS: CEFEPIME 1 GM in D5W 50 ML IV SCH (20:57)
[2021-11-20] MEDS: LINEZOLID 300 ML IV SCH (20:58)
[2021-11-21] VITALS: BP_SYST 120
[2021-11-21 01:01] VITALS: BP_SYST 150
[2021-11-21 04:00] VITALS: BP_SYST 122
[2021-11-21] MEDS: INSULIN REGULAR, HUMAN 100 UNITS/ML, 10 ML VIAL (humuLIN R) SUBCUT PRN ×3 (06:26→17:50)
[2021-11-21 06:38] LABS: BASOPHILS # (AUTO) 0.1 K/uL (0.0-0.2); BASOPHILS % (AUTO) 0.5 % (0.0-2.0); EOSINOPHILS # (AUTO) 0.6 K/uL (0.0-0.4); EOSINOPHILS % (AUTO) 3.1 % (0.0-4.0); HEMATOCRIT 38.5 % (36-54); HEMOGLOBIN 12.7 g/dL (14.0-18.0); LYMPHOCYTES # (AUTO) 1.7 K/uL (1.0-5.5); LYMPHOCYTES % (AUTO) 8.5 % (20.5-51.5); MEAN CORPUSCULAR HEMOGLOBIN 28 pg (27-31); MEAN CORPUSCULAR HGB CONC 33 % (32-36); MEAN CORPUSCULAR VOLUME 85 fL (79.0-98.0); MONOCYTES # (AUTO) 1.4 K/uL (0.0-1.0); MONOCYTES % (AUTO) 7.4 % (1.7-9.3); NEUTROPHILS # (AUTO) 15.6 K/uL (1.8-7.7); NEUTROPHILS % (AUTO) 80.5 % (40.0-70.0); PLATELET COUNT (AUTO) 407 K/uL (130-430); RED BLOOD CELL COUNT(AUTO) 4.52 MIL/uL (4.2-6.2); RED CELL DISTRIBUTION WIDTH 13.7 % (9.0-15.0); WHITE BLOOD COUNT (AUTO) 19.4 K/uL (4.8-10.8)
[2021-11-21 06:51] LABS: CALCIUM 7.3 mg/dL (8.4-11.0); CREATININE 1.24 mg/dL (0.55-1.30); POTASSIUM 3.8 mmol/L (3.5-5.1)
[2021-11-21] MEDS: ASPIRIN 81 MG TABLET(ECOTRIN) PO SCH (09:39)
[2021-11-21] MEDS: POTASSIUM CHLORIDE 20 MEQ TAB.PRT.SR PO SCH (09:39)
[2021-11-21] MEDS: NEPHROVITE, (FOLIC ACID/VITAMIN B COMP W-C 1 TAB) PO SCH (09:39)
[2021-11-21] MEDS: PANTOPRAZOLE SODIUM 40 MG TAB PO SCH (09:39)
[2021-11-21] MEDS: ATORVASTATIN 10 MG TABLET PO SCH (09:39)
[2021-11-21] MEDS: LINEZOLID 300 ML IV SCH (09:39)
[2021-11-21] MEDS: NYSTATIN 15 GM TOPICAL POWDER TP SCH ×2 (09:40→21:36)
[2021-11-21] MEDS: BALSAM PERU/CASTOR OIL 56.7 GM OINT...G. TP SCH (09:40)
[2021-11-21] MEDS: INSULIN GLARGINE 100 UNITS/ML 10 ML VIAL SUBCUT SCH ×2 (09:42→21:34)
[2021-11-21] MEDS: 0.45% NACL 1,000 ML IV SCH ×2 (09:46→22:17)
[2021-11-21] MEDS ORDERED: CHOLECALCIFEROL (VITAMIN D3) 2,000 UNIT TABLET PO ONE (10:15)
[2021-11-21] MEDS ORDERED: LACTOBACILLUS RHAMNOSUS GG 1 CAP CAPSULE PO ONE (10:15)
[2021-11-21] MEDS: CEFEPIME 1 GM in D5W 50 ML IV SCH (11:47)
[2021-11-21 12:00] VITALS: BP_SYST 133
[2021-11-21] MEDS ORDERED: CLINDAMYCIN 900 MG in D5W 100 ML IV SCH (14:00)
[2021-11-21 16:08] VITALS: BP_SYST 125
[2021-11-21] MEDS: CLINDAMYCIN 900 mg/50mL D5W 50 ML IV SCH ×2 (17:36→22:53)
[2021-11-21] MEDS ORDERED: CLINDAMYCIN 300 MG in D5W 50 ML IV SCH (18:00)
[2021-11-21 20:00] VITALS: BP_SYST 113
[2021-11-21] MEDS ORDERED: D5W IV SCH (21:00)
[2021-11-21] MEDS ORDERED: CEFEPIME IV SCH (21:00)
[2021-11-21] MEDS: CEFEPIME 2 GM in D5W 100 ML IV SCH (21:22)
[2021-11-21] MEDS: LACTOBACILLUS RHAMNOSUS GG 1 CAP CAPSULE PO SCH (21:23)
[2021-11-21] MEDS: MULTIVITAMINS TAB 1 TABLET PO SCH (21:23)
[2021-11-21] MEDS: MEGESTROL ACETATE 400 MG/10 ML UDC PO SCH (21:23)
[2021-11-22] VITALS: BP_SYST 110
[2021-11-22 04:00] VITALS: BP_SYST 118
[2021-11-22] MEDS: CLINDAMYCIN 900 mg/50mL D5W 50 ML IV SCH ×3 (05:23→21:34)
[2021-11-22] MEDS: LINEZOLID 300 ML IV SCH ×2 (05:23→17:42)
[2021-11-22 08:00] VITALS: BP_SYST 107
[2021-11-22 08:06] LABS: BASOPHILS # (AUTO) 0.2 K/uL (0.0-0.2); BASOPHILS % (AUTO) 0.8 % (0.0-2.0); EOSINOPHILS # (AUTO) 0.8 K/uL (0.0-0.4); EOSINOPHILS % (AUTO) 4.1 % (0.0-4.0); HEMATOCRIT 41.4 % (36-54); HEMOGLOBIN 13.7 g/dL (14.0-18.0); LYMPHOCYTES % (AUTO) 9.8 % (20.5-51.5); MEAN CORPUSCULAR HEMOGLOBIN 29 pg (27-31); MEAN CORPUSCULAR HGB CONC 33 % (32-36); MEAN CORPUSCULAR VOLUME 86 fL (79.0-98.0); MONOCYTES # (AUTO) 1.4 K/uL (0.0-1.0); MONOCYTES % (AUTO) 7.1 % (1.7-9.3); NEUTROPHILS # (AUTO) 15.5 K/uL (1.8-7.7); NEUTROPHILS % (AUTO) 78.2 % (40.0-70.0); PLATELET COUNT (AUTO) 485 K/uL (130-430); RED CELL DISTRIBUTION WIDTH 14.1 % (9.0-15.0); WHITE BLOOD COUNT (AUTO) 19.9 K/uL (4.8-10.8)
[2021-11-22 08:10] LABS: ALBUMIN 1.2 g/dL (3.4-4.8); CALCIUM 7.7 mg/dL (8.4-11.0); CREATININE 1.15 mg/dL (0.55-1.30); POTASSIUM 3.7 mmol/L (3.5-5.1); TOTAL BILIRUBIN 0.5 mg/dL (0.0-1.0)
[2021-11-22] MEDS: PANTOPRAZOLE SODIUM 40 MG TAB PO SCH (09:00)
[2021-11-22] MEDS: NYSTATIN 15 GM TOPICAL POWDER TP SCH ×2 (09:00→20:28)
[2021-11-22] MEDS: BALSAM PERU/CASTOR OIL 56.7 GM OINT...G. TP SCH (09:00)
[2021-11-22] MEDS: ASPIRIN 81 MG TABLET(ECOTRIN) PO SCH (09:00)
[2021-11-22] MEDS: MEGESTROL ACETATE 400 MG/10 ML UDC PO SCH ×2 (09:00→20:27)
[2021-11-22] MEDS: CHOLECALCIFEROL (VITAMIN D3) 2,000 UNIT TABLET PO SCH ×2 (09:00→09:51)
[2021-11-22] MEDS: LACTOBACILLUS RHAMNOSUS GG 1 CAP CAPSULE PO SCH ×2 (09:00→20:27)
[2021-11-22] MEDS: MULTIVITAMINS TAB 1 TABLET PO SCH ×2 (09:00→20:27)
[2021-11-22] MEDS: ATORVASTATIN 10 MG TABLET PO SCH (09:00)
[2021-11-22] MEDS: CEFEPIME 2 GM in D5W 100 ML IV SCH ×2 (09:45→20:26)
[2021-11-22] MEDS: INSULIN GLARGINE 100 UNITS/ML 10 ML VIAL SUBCUT SCH ×2 (09:49→21:32)
[2021-11-22 12:00] VITALS: BP_SYST 110
[2021-11-22 16:00] VITALS: BP_SYST 114
[2021-11-22 20:00] VITALS: BP_SYST 128
[2021-11-23] VITALS: BP_SYST 112
[2021-11-23 04:00] VITALS: BP_SYST 118
[2021-11-23] MEDS: CLINDAMYCIN 900 mg/50mL D5W 50 ML IV SCH ×3 (05:40→22:21)
[2021-11-23] MEDS: LINEZOLID 300 ML IV SCH ×2 (05:41→17:28)
[2021-11-23] MEDS: PANTOPRAZOLE SODIUM 40 MG TAB PO SCH (08:22)
[2021-11-23] MEDS: ASPIRIN 81 MG TABLET(ECOTRIN) PO SCH (08:22)
[2021-11-23] MEDS: ATORVASTATIN 10 MG TABLET PO SCH (08:22)
[2021-11-23] MEDS: MEGESTROL ACETATE 400 MG/10 ML UDC PO SCH ×2 (08:22→22:18)
[2021-11-23] MEDS: LACTOBACILLUS RHAMNOSUS GG 1 CAP CAPSULE PO SCH ×2 (08:23→22:18)
[2021-11-23] MEDS: CEFEPIME 2 GM in D5W 100 ML IV SCH ×2 (08:23→22:14)
[2021-11-23 08:30] VITALS: BP_SYST 142
[2021-11-23] MEDS: MULTIVITAMINS TAB 1 TABLET PO SCH ×2 (08:32→22:18)
[2021-11-23] MEDS: BALSAM PERU/CASTOR OIL 56.7 GM OINT...G. TP SCH (08:33)
[2021-11-23] MEDS: NYSTATIN 15 GM TOPICAL POWDER TP SCH ×2 (08:33→22:19)
[2021-11-23] MEDS: INSULIN GLARGINE 100 UNITS/ML 10 ML VIAL SUBCUT SCH ×2 (08:36→22:17)
[2021-11-23 12:10] VITALS: BP_SYST 156
[2021-11-23] MEDS: 0.45% NACL 1,000 ML IV SCH (17:30)
[2021-11-23 20:45] VITALS: BP_SYST 151
[2021-11-23 20:47] VITALS: BP_SYST 151
[2021-11-24] VITALS: BP_SYST 155
[2021-11-24] MEDS: LINEZOLID 300 ML IV SCH ×2 (06:34→17:25)
[2021-11-24] MEDS: CLINDAMYCIN 900 mg/50mL D5W 50 ML IV SCH ×3 (06:34→21:44)
[2021-11-24 07:28] LABS: BASOPHILS # (AUTO) 0.1 K/uL (0.0-0.2); BASOPHILS % (AUTO) 0.8 % (0.0-2.0); EOSINOPHILS # (AUTO) 0.6 K/uL (0.0-0.4); EOSINOPHILS % (AUTO) 3.5 % (0.0-4.0); HEMOGLOBIN 14.1 g/dL (14.0-18.0); LYMPHOCYTES % (AUTO) 10.8 % (20.5-51.5); MEAN CORPUSCULAR HEMOGLOBIN 29 pg (27-31); MEAN CORPUSCULAR HGB CONC 34 % (32-36); MEAN CORPUSCULAR VOLUME 85 fL (79.0-98.0); MONOCYTES # (AUTO) 1.6 K/uL (0.0-1.0); MONOCYTES % (AUTO) 9.1 % (1.7-9.3); NEUTROPHILS # (AUTO) 13.8 K/uL (1.8-7.7); NEUTROPHILS % (AUTO) 75.8 % (40.0-70.0); PLATELET COUNT (AUTO) 648 K/uL (130-430); RED BLOOD CELL COUNT(AUTO) 4.95 MIL/uL (4.2-6.2); WHITE BLOOD COUNT (AUTO) 18.2 K/uL (4.8-10.8)
[2021-11-24 08:00] VITALS: BP_SYST 147
[2021-11-24 08:10] LABS: ALBUMIN 1.4 g/dL (3.4-4.8); CALCIUM 7.9 mg/dL (8.4-11.0); CREATININE 1.04 mg/dL (0.55-1.30); POTASSIUM 3.4 mmol/L (3.5-5.1); TOTAL BILIRUBIN 0.5 mg/dL (0.0-1.0)
[2021-11-24] MEDS: INSULIN GLARGINE 100 UNITS/ML 10 ML VIAL SUBCUT SCH ×2 (09:00→21:46)
[2021-11-24] MEDS: CHOLECALCIFEROL (VITAMIN D3) 2,000 UNIT TABLET PO SCH (09:20)
[2021-11-24] MEDS: MULTIVITAMINS TAB 1 TABLET PO SCH ×2 (09:20→21:44)
[2021-11-24] MEDS: CEFEPIME 2 GM in D5W 100 ML IV SCH ×2 (09:20→21:44)
[2021-11-24] MEDS: PANTOPRAZOLE SODIUM 40 MG TAB PO SCH (09:20)
[2021-11-24] MEDS: LACTOBACILLUS RHAMNOSUS GG 1 CAP CAPSULE PO SCH ×2 (09:20→21:44)
[2021-11-24] MEDS: ASPIRIN 81 MG TABLET(ECOTRIN) PO SCH (09:20)
[2021-11-24] MEDS: ATORVASTATIN 10 MG TABLET PO SCH (09:20)
[2021-11-24] MEDS: MEGESTROL ACETATE 400 MG/10 ML UDC PO SCH ×2 (09:20→21:44)
[2021-11-24] MEDS: NYSTATIN 15 GM TOPICAL POWDER TP SCH ×2 (09:21→22:02)
[2021-11-24] MEDS: BALSAM PERU/CASTOR OIL 56.7 GM OINT...G. TP SCH (09:21)
[2021-11-24 11:22] LABS: ERYTHROCYTE SEDIMENTATION RATE 72 MM/HR (0-15)
[2021-11-24] MEDS ORDERED: POTASSIUM CHLORIDE 20 MEQ/PKT PACKET PO ONE (15:00)
[2021-11-24 16:00] VITALS: BP_SYST 138
[2021-11-24] MEDS: INSULIN REGULAR, HUMAN 100 UNITS/ML, 10 ML VIAL (humuLIN R) SUBCUT PRN (18:18)
[2021-11-24 19:00] VITALS: BP_SYST 137
[2021-11-24 20:00] VITALS: BP_SYST 137
[2021-11-24] MEDS: 0.45% NACL 1,000 ML IV SCH (21:52)
[2021-11-25 04:00] VITALS: BP_SYST 133
[2021-11-25] MEDS: CLINDAMYCIN 900 mg/50mL D5W 50 ML IV SCH ×3 (05:35→22:01)
[2021-11-25] MEDS: LINEZOLID 300 ML IV SCH ×2 (05:36→18:09)
[2021-11-25 07:16] LABS: BASOPHILS # (AUTO) 0.1 K/uL (0.0-0.2); EOSINOPHILS # (AUTO) 0.5 K/uL (0.0-0.4); EOSINOPHILS % (AUTO) 3.4 % (0.0-4.0); HEMATOCRIT 42.6 % (36-54); HEMOGLOBIN 14.3 g/dL (14.0-18.0); LYMPHOCYTES # (AUTO) 2.1 K/uL (1.0-5.5); LYMPHOCYTES % (AUTO) 14.6 % (20.5-51.5); MEAN CORPUSCULAR HEMOGLOBIN 29 pg (27-31); MEAN CORPUSCULAR HGB CONC 34 % (32-36); MEAN CORPUSCULAR VOLUME 85 fL (79.0-98.0); MONOCYTES # (AUTO) 1.3 K/uL (0.0-1.0); MONOCYTES % (AUTO) 8.9 % (1.7-9.3); NEUTROPHILS # (AUTO) 10.5 K/uL (1.8-7.7); PLATELET COUNT (AUTO) 580 K/uL (130-430); RED BLOOD CELL COUNT(AUTO) 5.01 MIL/uL (4.2-6.2); RED CELL DISTRIBUTION WIDTH 13.7 % (9.0-15.0); WHITE BLOOD COUNT (AUTO) 14.5 K/uL (4.8-10.8)
[2021-11-25 07:59] LABS: ALBUMIN 1.4 g/dL (3.4-4.8); CALCIUM 8.4 mg/dL (8.4-11.0); CREATININE 1.13 mg/dL (0.55-1.30); POTASSIUM 4.1 mmol/L (3.5-5.1); TOTAL BILIRUBIN 0.4 mg/dL (0.0-1.0)
[2021-11-25 08:00] VITALS: BP_SYST 98
[2021-11-25] MEDS: BALSAM PERU/CASTOR OIL 56.7 GM OINT...G. TP SCH (11:00)
[2021-11-25] MEDS: CHOLECALCIFEROL (VITAMIN D3) 2,000 UNIT TABLET PO SCH (11:00)
[2021-11-25] MEDS: ASPIRIN 81 MG TABLET(ECOTRIN) PO SCH (11:00)
[2021-11-25] MEDS: MEGESTROL ACETATE 400 MG/10 ML UDC PO SCH ×2 (11:00→22:01)
[2021-11-25] MEDS: PANTOPRAZOLE SODIUM 40 MG TAB PO SCH (11:00)
[2021-11-25] MEDS: LACTOBACILLUS RHAMNOSUS GG 1 CAP CAPSULE PO SCH ×2 (11:00→22:01)
[2021-11-25] MEDS: MULTIVITAMINS TAB 1 TABLET PO SCH ×2 (11:00→22:01)
[2021-11-25] MEDS: ATORVASTATIN 10 MG TABLET PO SCH (11:01)
[2021-11-25] MEDS: NYSTATIN 15 GM TOPICAL POWDER TP SCH ×2 (11:01→22:16)
[2021-11-25] MEDS: CEFEPIME 2 GM in D5W 100 ML IV SCH ×2 (11:11→22:02)
[2021-11-25] MEDS: INSULIN GLARGINE 100 UNITS/ML 10 ML VIAL SUBCUT SCH ×2 (11:16→22:19)
[2021-11-25 12:00] VITALS: BP_SYST 106
[2021-11-25 13:51] LABS: NEUTROPHILS % (AUTO) 72.1 % (40.0-70.0)
[2021-11-25 16:00] VITALS: BP_SYST 105
[2021-11-25] MEDS: 0.45% NACL 1,000 ML IV SCH (18:10)
[2021-11-25] MEDS: INSULIN REGULAR, HUMAN 100 UNITS/ML, 10 ML VIAL (humuLIN R) SUBCUT PRN (18:14)
[2021-11-25 19:00] VITALS: BP_SYST 117
[2021-11-26] VITALS (7 sets, daily range): BP systolic 97–133
[2021-11-26] MEDS: LINEZOLID 300 ML IV SCH ×2 (05:30→17:29)
[2021-11-26] MEDS: CLINDAMYCIN 900 mg/50mL D5W 50 ML IV SCH (05:30)
[2021-11-26 07:49] LABS: ALBUMIN 1.5 g/dL (3.4-4.8); CALCIUM 9.1 mg/dL (8.4-11.0); CREATININE 1.12 mg/dL (0.55-1.30); POTASSIUM 4.5 mmol/L (3.5-5.1); TOTAL BILIRUBIN 0.2 mg/dL (0.0-1.0)
[2021-11-26] MEDS: MEGESTROL ACETATE 400 MG/10 ML UDC PO SCH ×2 (09:51→20:50)
[2021-11-26] MEDS: ATORVASTATIN 10 MG TABLET PO SCH (09:52)
[2021-11-26] MEDS: CEFEPIME 2 GM in D5W 100 ML IV SCH ×2 (09:52→20:50)
[2021-11-26] MEDS: ASPIRIN 81 MG TABLET(ECOTRIN) PO SCH (09:52)
[2021-11-26] MEDS: CHOLECALCIFEROL (VITAMIN D3) 2,000 UNIT TABLET PO SCH (09:52)
[2021-11-26] MEDS: PANTOPRAZOLE SODIUM 40 MG TAB PO SCH (09:52)
[2021-11-26] MEDS: LACTOBACILLUS RHAMNOSUS GG 1 CAP CAPSULE PO SCH ×2 (09:53→20:50)
[2021-11-26] MEDS: MULTIVITAMINS TAB 1 TABLET PO SCH ×2 (09:53→20:50)
[2021-11-26] MEDS: NYSTATIN 15 GM TOPICAL POWDER TP SCH ×2 (09:53→21:07)
[2021-11-26] MEDS: BALSAM PERU/CASTOR OIL 56.7 GM OINT...G. TP SCH (09:54)
[2021-11-26] MEDS: INSULIN GLARGINE 100 UNITS/ML 10 ML VIAL SUBCUT SCH ×2 (10:12→21:11)
[2021-11-26] MEDS: INSULIN REGULAR, HUMAN 100 UNITS/ML, 10 ML VIAL (humuLIN R) SUBCUT PRN (12:17)
[2021-11-26] MEDS: CLINDAMYCIN HCL 150 MG CAPSULE PO SCH ×2 (17:29→23:58)
[2021-11-26] MEDS: 0.45% NACL 1,000 ML IV SCH (21:12)
[2021-11-27] MEDS: 0.45% NACL 1,000 ML IV SCH ×2 (05:16→23:56)
[2021-11-27] MEDS: LINEZOLID 300 ML IV SCH ×2 (06:16→17:12)
[2021-11-27] MEDS: CLINDAMYCIN HCL 150 MG CAPSULE PO SCH ×4 (06:17→23:56)
[2021-11-27 06:40] LABS: BASOPHILS # (AUTO) 0.2 K/uL (0.0-0.2); BASOPHILS % (AUTO) 1.3 % (0.0-2.0); EOSINOPHILS # (AUTO) 0.7 K/uL (0.0-0.4); EOSINOPHILS % (AUTO) 4.6 % (0.0-4.0); HEMATOCRIT 42.9 % (36-54); HEMOGLOBIN 14.6 g/dL (14.0-18.0); LYMPHOCYTES # (AUTO) 2.2 K/uL (1.0-5.5); LYMPHOCYTES % (AUTO) 13.9 % (20.5-51.5); MEAN CORPUSCULAR HEMOGLOBIN 29 pg (27-31); MEAN CORPUSCULAR HGB CONC 34 % (32-36); MEAN CORPUSCULAR VOLUME 85 fL (79.0-98.0); MONOCYTES # (AUTO) 1.5 K/uL (0.0-1.0); MONOCYTES % (AUTO) 9.9 % (1.7-9.3); NEUTROPHILS # (AUTO) 10.9 K/uL (1.8-7.7); PLATELET COUNT (AUTO) 662 K/uL (130-430); RED BLOOD CELL COUNT(AUTO) 5.08 MIL/uL (4.2-6.2); RED CELL DISTRIBUTION WIDTH 13.7 % (9.0-15.0); WHITE BLOOD COUNT (AUTO) 15.5 K/uL (4.8-10.8)
[2021-11-27 07:03] LABS: CALCIUM 9.3 mg/dL (8.4-11.0); CREATININE 1.17 mg/dL (0.55-1.30); POTASSIUM 4.5 mmol/L (3.5-5.1)
[2021-11-27 08:00] VITALS: BP_SYST 101
[2021-11-27 08:34] LABS: NEUTROPHILS % (AUTO) 70.3 % (40.0-70.0)
[2021-11-27] MEDS: LACTOBACILLUS RHAMNOSUS GG 1 CAP CAPSULE PO SCH ×2 (08:37→22:04)
[2021-11-27] MEDS: ASPIRIN 81 MG TABLET(ECOTRIN) PO SCH (08:38)
[2021-11-27] MEDS: MULTIVITAMINS TAB 1 TABLET PO SCH ×2 (08:38→22:04)
[2021-11-27] MEDS: CHOLECALCIFEROL (VITAMIN D3) 2,000 UNIT TABLET PO SCH (08:38)
[2021-11-27] MEDS: ATORVASTATIN 10 MG TABLET PO SCH (08:38)
[2021-11-27] MEDS: MEGESTROL ACETATE 400 MG/10 ML UDC PO SCH ×2 (08:38→22:04)
[2021-11-27] MEDS: PANTOPRAZOLE SODIUM 40 MG TAB PO SCH (08:38)
[2021-11-27] MEDS: CEFEPIME 2 GM in D5W 100 ML IV SCH ×2 (08:39→22:01)
[2021-11-27] MEDS: INSULIN GLARGINE 100 UNITS/ML 10 ML VIAL SUBCUT SCH ×2 (08:40→22:20)
[2021-11-27] MEDS: BALSAM PERU/CASTOR OIL 56.7 GM OINT...G. TP SCH (08:42)
[2021-11-27] MEDS: NYSTATIN 15 GM TOPICAL POWDER TP SCH ×2 (08:42→22:04)
[2021-11-27 08:52] VITALS: BP_SYST 126
[2021-11-27] MEDS: INSULIN REGULAR, HUMAN 100 UNITS/ML, 10 ML VIAL (humuLIN R) SUBCUT PRN (11:59)
[2021-11-27 12:06] VITALS: BP_SYST 138
[2021-11-27 16:10] VITALS: BP_SYST 143
[2021-11-27 20:00] VITALS: BP_SYST 127
[2021-11-28] MEDS: LINEZOLID 300 ML IV SCH ×2 (05:26→18:25)
[2021-11-28] MEDS: CLINDAMYCIN HCL 150 MG CAPSULE PO SCH ×3 (05:27→18:24)
[2021-11-28 08:31] VITALS: BP_SYST 141
[2021-11-28] MEDS: ATORVASTATIN 10 MG TABLET PO SCH (09:14)
[2021-11-28] MEDS: PANTOPRAZOLE SODIUM 40 MG TAB PO SCH (09:14)
[2021-11-28] MEDS: MEGESTROL ACETATE 400 MG/10 ML UDC PO SCH ×2 (09:15→21:35)
[2021-11-28] MEDS: CHOLECALCIFEROL (VITAMIN D3) 2,000 UNIT TABLET PO SCH (09:15)
[2021-11-28] MEDS: ASPIRIN 81 MG TABLET(ECOTRIN) PO SCH (09:15)
[2021-11-28] MEDS: LACTOBACILLUS RHAMNOSUS GG 1 CAP CAPSULE PO SCH ×2 (09:16→21:35)
[2021-11-28] MEDS: MULTIVITAMINS TAB 1 TABLET PO SCH ×2 (09:17→21:35)
[2021-11-28] MEDS: INSULIN GLARGINE 100 UNITS/ML 10 ML VIAL SUBCUT SCH ×2 (09:23→21:43)
[2021-11-28] MEDS: BALSAM PERU/CASTOR OIL 56.7 GM OINT...G. TP SCH (09:24)
[2021-11-28] MEDS: NYSTATIN 15 GM TOPICAL POWDER TP SCH ×2 (09:26→21:36)
[2021-11-28] MEDS: CEFEPIME 2 GM in D5W 100 ML IV SCH (09:57)
[2021-11-28] MEDS: INSULIN REGULAR, HUMAN 100 UNITS/ML, 10 ML VIAL (humuLIN R) SUBCUT PRN (11:56)
[2021-11-28 12:48] VITALS: BP_SYST 117
[2021-11-28 16:35] VITALS: BP_SYST 123
[2021-11-28 20:00] VITALS: BP_SYST 157
[2021-11-28] MEDS: 0.45% NACL 1,000 ML IV SCH (21:16)
[2021-11-29 00:20] VITALS: BP_SYST 126
[2021-11-29] MEDS: CLINDAMYCIN HCL 150 MG CAPSULE PO SCH ×4 (00:58→12:04)
[2021-11-29] MEDS: CEFEPIME 2 GM in D5W 100 ML IV SCH ×3 (00:59→21:23)
[2021-11-29] MEDS: LINEZOLID 300 ML IV SCH ×2 (06:09→17:51)
[2021-11-29 08:00] VITALS: BP_SYST 137
[2021-11-29] MEDS: MULTIVITAMINS TAB 1 TABLET PO SCH ×2 (09:41→21:23)
[2021-11-29] MEDS: CHOLECALCIFEROL (VITAMIN D3) 2,000 UNIT TABLET PO SCH (09:41)
[2021-11-29] MEDS: LACTOBACILLUS RHAMNOSUS GG 1 CAP CAPSULE PO SCH ×2 (09:41→21:23)
[2021-11-29] MEDS: ASPIRIN 81 MG TABLET(ECOTRIN) PO SCH (09:41)
[2021-11-29] MEDS: PANTOPRAZOLE SODIUM 40 MG TAB PO SCH (09:41)
[2021-11-29] MEDS: ATORVASTATIN 10 MG TABLET PO SCH (09:41)
[2021-11-29] MEDS: MEGESTROL ACETATE 400 MG/10 ML UDC PO SCH ×2 (09:41→21:23)
[2021-11-29] MEDS: INSULIN GLARGINE 100 UNITS/ML 10 ML VIAL SUBCUT SCH ×2 (09:45→21:24)
[2021-11-29] MEDS: NYSTATIN 15 GM TOPICAL POWDER TP SCH ×2 (09:46→21:26)
[2021-11-29] MEDS: BALSAM PERU/CASTOR OIL 56.7 GM OINT...G. TP SCH (09:46)
[2021-11-29] MEDS: 0.45% NACL 1,000 ML IV SCH (10:04)
[2021-11-29 11:56] VITALS: BP_SYST 100
[2021-11-29] MEDS: INSULIN REGULAR, HUMAN 100 UNITS/ML, 10 ML VIAL (humuLIN R) SUBCUT PRN (12:10)
[2021-11-29 16:12] VITALS: BP_SYST 104
[2021-11-29 20:00] VITALS: BP_SYST 115
[2021-11-29] MEDS: metroNIDAZOLE 500 MG TABLET PO SCH (21:23)
[2021-11-30 00:45] VITALS: BP_SYST 138
[2021-11-30] MEDS: metroNIDAZOLE 500 MG TABLET PO SCH ×3 (06:00→23:00)
[2021-11-30] MEDS: LINEZOLID 300 ML IV SCH ×2 (06:01→18:18)
[2021-11-30 08:00] VITALS: BP_SYST 119
[2021-11-30 08:09] LABS: BASOPHILS # (AUTO) 0.1 K/uL (0.0-0.2); BASOPHILS % (AUTO) 1.1 % (0.0-2.0); EOSINOPHILS # (AUTO) 0.8 K/uL (0.0-0.4); HEMATOCRIT 40.6 % (36-54); HEMOGLOBIN 13.7 g/dL (14.0-18.0); LYMPHOCYTES # (AUTO) 2.4 K/uL (1.0-5.5); LYMPHOCYTES % (AUTO) 18.5 % (20.5-51.5); MEAN CORPUSCULAR HEMOGLOBIN 28 pg (27-31); MEAN CORPUSCULAR HGB CONC 34 % (32-36); MEAN CORPUSCULAR VOLUME 84 fL (79.0-98.0); MONOCYTES # (AUTO) 1.3 K/uL (0.0-1.0); MONOCYTES % (AUTO) 10.1 % (1.7-9.3); NEUTROPHILS # (AUTO) 8.4 K/uL (1.8-7.7); NEUTROPHILS % (AUTO) 64.3 % (40.0-70.0); PLATELET COUNT (AUTO) 584 K/uL (130-430); RED BLOOD CELL COUNT(AUTO) 4.85 MIL/uL (4.2-6.2); RED CELL DISTRIBUTION WIDTH 13.5 % (9.0-15.0)
[2021-11-30 09:25] LABS: ALBUMIN 1.7 g/dL (3.4-4.8); C-REACTIVE PROTEIN QUANT 5.2 mg/dL (0-0.5); CALCIUM 9.2 mg/dL (8.4-11.0); CREATININE 1.12 mg/dL (0.55-1.30); POTASSIUM 3.9 mmol/L (3.5-5.1); TOTAL BILIRUBIN 0.3 mg/dL (0.0-1.0)
[2021-11-30] MEDS: ASPIRIN 81 MG TABLET(ECOTRIN) PO SCH (10:01)
[2021-11-30] MEDS: LACTOBACILLUS RHAMNOSUS GG 1 CAP CAPSULE PO SCH ×2 (10:01→22:59)
[2021-11-30] MEDS: PANTOPRAZOLE SODIUM 40 MG TAB PO SCH (10:01)
[2021-11-30] MEDS: ATORVASTATIN 10 MG TABLET PO SCH (10:01)
[2021-11-30] MEDS: CHOLECALCIFEROL (VITAMIN D3) 2,000 UNIT TABLET PO SCH (10:01)
[2021-11-30] MEDS: MULTIVITAMINS TAB 1 TABLET PO SCH ×2 (10:01→22:59)
[2021-11-30] MEDS: MEGESTROL ACETATE 400 MG/10 ML UDC PO SCH (10:01)
[2021-11-30] MEDS: BALSAM PERU/CASTOR OIL 56.7 GM OINT...G. TP SCH (10:02)
[2021-11-30] MEDS: NYSTATIN 15 GM TOPICAL POWDER TP SCH ×2 (10:03→22:59)
[2021-11-30] MEDS: CEFEPIME 2 GM in D5W 100 ML IV SCH ×2 (10:03→22:59)
[2021-11-30 10:18] LABS: ERYTHROCYTE SEDIMENTATION RATE 29 MM/HR (0-15)
[2021-11-30] MEDS: INSULIN GLARGINE 100 UNITS/ML 10 ML VIAL SUBCUT SCH ×2 (10:21→23:08)
[2021-11-30] MEDS: 0.45% NACL 1,000 ML IV SCH (10:22)
[2021-11-30] MEDS: INSULIN REGULAR, HUMAN 100 UNITS/ML, 10 ML VIAL (humuLIN R) SUBCUT PRN ×2 (12:27→23:11)
[2021-11-30 12:42] VITALS: BP_SYST 120
[2021-11-30 15:14] VITALS: BP_SYST 105
[2021-11-30 20:15] VITALS: BP_SYST 110
[2021-12-01 00:45] VITALS: BP_SYST 147
[2021-12-01] MEDS: LINEZOLID 300 ML IV SCH ×2 (06:02→18:40)
[2021-12-01] MEDS: metroNIDAZOLE 500 MG TABLET PO SCH ×3 (06:02→23:30)
[2021-12-01 08:00] VITALS: BP_SYST 147
[2021-12-01] MEDS: CEFEPIME 2 GM in D5W 100 ML IV SCH ×2 (08:16→23:31)
[2021-12-01] MEDS: CHOLECALCIFEROL (VITAMIN D3) 2,000 UNIT TABLET PO SCH (08:17)
[2021-12-01] MEDS: MULTIVITAMINS TAB 1 TABLET PO SCH ×2 (08:17→23:30)
[2021-12-01] MEDS: LACTOBACILLUS RHAMNOSUS GG 1 CAP CAPSULE PO SCH ×2 (08:17→23:30)
[2021-12-01] MEDS: ATORVASTATIN 10 MG TABLET PO SCH (08:17)
[2021-12-01] MEDS: ASPIRIN 81 MG TABLET(ECOTRIN) PO SCH (08:17)
[2021-12-01] MEDS: NYSTATIN 15 GM TOPICAL POWDER TP SCH ×2 (08:18→23:31)
[2021-12-01] MEDS: BALSAM PERU/CASTOR OIL 56.7 GM OINT...G. TP SCH (08:18)
[2021-12-01] MEDS: INSULIN GLARGINE 100 UNITS/ML 10 ML VIAL SUBCUT SCH ×2 (08:20→23:34)
[2021-12-01] MEDS: PANTOPRAZOLE SODIUM 40 MG TAB PO SCH (09:00)
[2021-12-01 12:00] VITALS: BP_SYST 136
[2021-12-01 16:00] VITALS: BP_SYST 120
[2021-12-01] MEDS: INSULIN REGULAR, HUMAN 100 UNITS/ML, 10 ML VIAL (humuLIN R) SUBCUT PRN (16:34)
[2021-12-01 20:10] VITALS: BP_SYST 128
[2021-12-02 00:10] VITALS: BP_SYST 134
[2021-12-02] MEDS: LINEZOLID 300 ML IV SCH ×2 (06:10→18:43)
[2021-12-02] MEDS: metroNIDAZOLE 500 MG TABLET PO SCH ×3 (06:10→22:54)
[2021-12-02 06:55] LABS: BASOPHILS # (AUTO) 0.3 K/uL (0.0-0.2); BASOPHILS % (AUTO) 1.9 % (0.0-2.0); EOSINOPHILS # (AUTO) 1.1 K/uL (0.0-0.4); EOSINOPHILS % (AUTO) 7.5 % (0.0-4.0); HEMATOCRIT 41.6 % (36-54); HEMOGLOBIN 14.2 g/dL (14.0-18.0); LYMPHOCYTES # (AUTO) 2.9 K/uL (1.0-5.5); LYMPHOCYTES % (AUTO) 19.8 % (20.5-51.5); MEAN CORPUSCULAR HEMOGLOBIN 29 pg (27-31); MEAN CORPUSCULAR HGB CONC 34 % (32-36); MEAN CORPUSCULAR VOLUME 84 fL (79.0-98.0); MONOCYTES # (AUTO) 1.6 K/uL (0.0-1.0); NEUTROPHILS # (AUTO) 8.7 K/uL (1.8-7.7); NEUTROPHILS % (AUTO) 59.8 % (40.0-70.0); PLATELET COUNT (AUTO) 502 K/uL (130-430); RED BLOOD CELL COUNT(AUTO) 4.95 MIL/uL (4.2-6.2); RED CELL DISTRIBUTION WIDTH 13.6 % (9.0-15.0); WHITE BLOOD COUNT (AUTO) 14.5 K/uL (4.8-10.8)
[2021-12-02 07:14] LABS: ALBUMIN 1.9 g/dL (3.4-4.8); CALCIUM 9.4 mg/dL (8.4-11.0); CREATININE 1.11 mg/dL (0.55-1.30); TOTAL BILIRUBIN 0.3 mg/dL (0.0-1.0)
[2021-12-02] MEDS: INSULIN GLARGINE 100 UNITS/ML 10 ML VIAL SUBCUT SCH ×2 (09:00→21:18)
[2021-12-02] MEDS: CEFEPIME 2 GM in D5W 100 ML IV SCH ×2 (09:45→20:25)
[2021-12-02] MEDS: ATORVASTATIN 10 MG TABLET PO SCH (09:47)
[2021-12-02] MEDS: CHOLECALCIFEROL (VITAMIN D3) 2,000 UNIT TABLET PO SCH (09:47)
[2021-12-02] MEDS: PANTOPRAZOLE SODIUM 40 MG TAB PO SCH (09:47)
[2021-12-02] MEDS: MULTIVITAMINS TAB 1 TABLET PO SCH ×2 (09:47→20:23)
[2021-12-02] MEDS: LACTOBACILLUS RHAMNOSUS GG 1 CAP CAPSULE PO SCH ×2 (09:47→20:23)
[2021-12-02] MEDS: ASPIRIN 81 MG TABLET(ECOTRIN) PO SCH (09:47)
[2021-12-02] MEDS: NYSTATIN 15 GM TOPICAL POWDER TP SCH ×2 (09:48→21:13)
[2021-12-02] MEDS: BALSAM PERU/CASTOR OIL 56.7 GM OINT...G. TP SCH (09:48)
[2021-12-02 11:59] VITALS: BP_SYST 106
[2021-12-02 15:00] VITALS: BP_SYST 95
[2021-12-02 19:00] VITALS: BP_SYST 117
[2021-12-03] VITALS (7 sets, daily range): BP systolic 95–147
[2021-12-03] MEDS: metroNIDAZOLE 500 MG TABLET PO SCH ×3 (05:47→21:30)
[2021-12-03] MEDS: LINEZOLID 300 ML IV SCH ×2 (05:47→17:05)
[2021-12-03] MEDS: CEFEPIME 2 GM in D5W 100 ML IV SCH ×2 (08:17→21:30)
[2021-12-03] MEDS: ASPIRIN 81 MG TABLET(ECOTRIN) PO SCH (08:17)
[2021-12-03] MEDS: PANTOPRAZOLE SODIUM 40 MG TAB PO SCH (08:17)
[2021-12-03] MEDS: ATORVASTATIN 10 MG TABLET PO SCH (08:17)
[2021-12-03] MEDS: MULTIVITAMINS TAB 1 TABLET PO SCH ×2 (08:17→21:30)
[2021-12-03] MEDS: CHOLECALCIFEROL (VITAMIN D3) 2,000 UNIT TABLET PO SCH (08:17)
[2021-12-03] MEDS: LACTOBACILLUS RHAMNOSUS GG 1 CAP CAPSULE PO SCH ×2 (08:17→21:30)
[2021-12-03] MEDS: NYSTATIN 15 GM TOPICAL POWDER TP SCH ×2 (08:18→21:38)
[2021-12-03] MEDS: BALSAM PERU/CASTOR OIL 56.7 GM OINT...G. TP SCH (08:18)
[2021-12-03] MEDS: INSULIN GLARGINE 100 UNITS/ML 10 ML VIAL SUBCUT SCH ×2 (08:28→21:42)
[2021-12-03 09:55] LABS: BASOPHILS # (AUTO) 0.2 K/uL (0.0-0.2); BASOPHILS % (AUTO) 1.4 % (0.0-2.0); EOSINOPHILS # (AUTO) 0.9 K/uL (0.0-0.4); EOSINOPHILS % (AUTO) 5.3 % (0.0-4.0); HEMATOCRIT 41.6 % (36-54); HEMOGLOBIN 14.1 g/dL (14.0-18.0); LYMPHOCYTES # (AUTO) 1.8 K/uL (1.0-5.5); LYMPHOCYTES % (AUTO) 10.4 % (20.5-51.5); MEAN CORPUSCULAR HEMOGLOBIN 29 pg (27-31); MEAN CORPUSCULAR HGB CONC 34 % (32-36); MEAN CORPUSCULAR VOLUME 84 fL (79.0-98.0); MONOCYTES # (AUTO) 1.6 K/uL (0.0-1.0); MONOCYTES % (AUTO) 9.2 % (1.7-9.3); NEUTROPHILS # (AUTO) 12.7 K/uL (1.8-7.7); NEUTROPHILS % (AUTO) 73.7 % (40.0-70.0); PLATELET COUNT (AUTO) 417 K/uL (130-430); RED BLOOD CELL COUNT(AUTO) 4.93 MIL/uL (4.2-6.2); RED CELL DISTRIBUTION WIDTH 13.7 % (9.0-15.0); WHITE BLOOD COUNT (AUTO) 17.2 K/uL (4.8-10.8)
[2021-12-03 10:14] LABS: ALBUMIN 1.9 g/dL (3.4-4.8); CALCIUM 9.4 mg/dL (8.4-11.0); CREATININE 1.24 mg/dL (0.55-1.30); POTASSIUM 4.4 mmol/L (3.5-5.1); TOTAL BILIRUBIN 0.4 mg/dL (0.0-1.0)
[2021-12-03] MEDS: INSULIN REGULAR, HUMAN 100 UNITS/ML, 10 ML VIAL (humuLIN R) SUBCUT PRN ×2 (11:27→17:10)
[2021-12-04 01:07] VITALS: BP_SYST 118
[2021-12-04] MEDS: LINEZOLID 300 ML IV SCH ×2 (05:36→17:07)
[2021-12-04] MEDS: metroNIDAZOLE 500 MG TABLET PO SCH ×3 (05:36→21:22)
[2021-12-04 07:53] VITALS: BP_SYST 134
[2021-12-04] MEDS: CEFEPIME 2 GM in D5W 100 ML IV SCH ×2 (08:40→21:22)
[2021-12-04] MEDS: LACTOBACILLUS RHAMNOSUS GG 1 CAP CAPSULE PO SCH ×2 (08:43→21:22)
[2021-12-04] MEDS: ATORVASTATIN 10 MG TABLET PO SCH (08:43)
[2021-12-04] MEDS: MULTIVITAMINS TAB 1 TABLET PO SCH ×2 (08:43→21:22)
[2021-12-04] MEDS: PANTOPRAZOLE SODIUM 40 MG TAB PO SCH (08:43)
[2021-12-04] MEDS: ASPIRIN 81 MG TABLET(ECOTRIN) PO SCH (08:43)
[2021-12-04] MEDS: CHOLECALCIFEROL (VITAMIN D3) 2,000 UNIT TABLET PO SCH (08:43)
[2021-12-04] MEDS: BALSAM PERU/CASTOR OIL 56.7 GM OINT...G. TP SCH (08:44)
[2021-12-04] MEDS: NYSTATIN 15 GM TOPICAL POWDER TP SCH ×2 (08:44→21:00)
[2021-12-04] MEDS: INSULIN GLARGINE 100 UNITS/ML 10 ML VIAL SUBCUT SCH ×2 (08:47→21:31)
[2021-12-04 12:04] VITALS: BP_SYST 114
[2021-12-04 16:08] VITALS: BP_SYST 150
[2021-12-04] MEDS: INSULIN REGULAR, HUMAN 100 UNITS/ML, 10 ML VIAL (humuLIN R) SUBCUT PRN (17:02)
[2021-12-05 02:01] VITALS: BP_SYST 156
[2021-12-05] MEDS: LINEZOLID 300 ML IV SCH (05:15)
[2021-12-05] MEDS: metroNIDAZOLE 500 MG TABLET PO SCH ×3 (05:27→23:28)
[2021-12-05 06:41] LABS: ALBUMIN 1.9 g/dL (3.4-4.8); CREATININE 1.2 mg/dL (0.55-1.30); POTASSIUM 4.5 mmol/L (3.5-5.1); TOTAL BILIRUBIN 0.3 mg/dL (0.0-1.0)
[2021-12-05 07:57] LABS: BASOPHILS # (AUTO) 0.3 K/uL (0.0-0.2); BASOPHILS % (AUTO) 1.9 % (0.0-2.0); EOSINOPHILS # (AUTO) 1.3 K/uL (0.0-0.4); EOSINOPHILS % (AUTO) 7.9 % (0.0-4.0); HEMATOCRIT 40.8 % (36-54); HEMOGLOBIN 13.6 g/dL (14.0-18.0); LYMPHOCYTES % (AUTO) 18.5 % (20.5-51.5); MEAN CORPUSCULAR HEMOGLOBIN 28 pg (27-31); MEAN CORPUSCULAR HGB CONC 33 % (32-36); MEAN CORPUSCULAR VOLUME 84 fL (79.0-98.0); MONOCYTES # (AUTO) 1.6 K/uL (0.0-1.0); MONOCYTES % (AUTO) 9.8 % (1.7-9.3); NEUTROPHILS # (AUTO) 10.2 K/uL (1.8-7.7); NEUTROPHILS % (AUTO) 61.9 % (40.0-70.0); PLATELET COUNT (AUTO) 356 K/uL (130-430); RED BLOOD CELL COUNT(AUTO) 4.84 MIL/uL (4.2-6.2); RED CELL DISTRIBUTION WIDTH 13.9 % (9.0-15.0); WHITE BLOOD COUNT (AUTO) 16.4 K/uL (4.8-10.8)
[2021-12-05] MEDS: BALSAM PERU/CASTOR OIL 56.7 GM OINT...G. TP SCH (09:00)
[2021-12-05] MEDS: NYSTATIN 15 GM TOPICAL POWDER TP SCH ×2 (09:00→21:32)
[2021-12-05 09:10] VITALS: BP_SYST 156
[2021-12-05] MEDS: ASPIRIN 81 MG TABLET(ECOTRIN) PO SCH (11:21)
[2021-12-05] MEDS: PANTOPRAZOLE SODIUM 40 MG TAB PO SCH (11:21)
[2021-12-05] MEDS: MULTIVITAMINS TAB 1 TABLET PO SCH ×2 (11:21→21:31)
[2021-12-05] MEDS: LACTOBACILLUS RHAMNOSUS GG 1 CAP CAPSULE PO SCH ×2 (11:22→21:31)
[2021-12-05] MEDS: ATORVASTATIN 10 MG TABLET PO SCH (11:23)
[2021-12-05] MEDS: CHOLECALCIFEROL (VITAMIN D3) 2,000 UNIT TABLET PO SCH (11:23)
[2021-12-05] MEDS: CEFEPIME 2 GM in D5W 100 ML IV SCH ×2 (12:07→21:30)
[2021-12-05] MEDS: INSULIN GLARGINE 100 UNITS/ML 10 ML VIAL SUBCUT SCH ×2 (12:12→21:57)
[2021-12-05 12:15] VITALS: BP_SYST 121
[2021-12-05 16:00] VITALS: BP_SYST 126
[2021-12-05] MEDS: INSULIN REGULAR, HUMAN 100 UNITS/ML, 10 ML VIAL (humuLIN R) SUBCUT PRN (17:54)
[2021-12-05 20:00] VITALS: BP_SYST 149
[2021-12-06] MEDS: metroNIDAZOLE 500 MG TABLET PO SCH (06:08)
[2021-12-06 08:00] VITALS: BP_SYST 139
[2021-12-06] MEDS: ASPIRIN 81 MG TABLET(ECOTRIN) PO SCH (09:47)
[2021-12-06] MEDS: PANTOPRAZOLE SODIUM 40 MG TAB PO SCH (09:48)
[2021-12-06] MEDS: ATORVASTATIN 10 MG TABLET PO SCH (09:48)
[2021-12-06] MEDS: MULTIVITAMINS TAB 1 TABLET PO SCH ×2 (09:48→21:36)
[2021-12-06] MEDS: LACTOBACILLUS RHAMNOSUS GG 1 CAP CAPSULE PO SCH ×2 (09:48→21:36)
[2021-12-06] MEDS: CHOLECALCIFEROL (VITAMIN D3) 2,000 UNIT TABLET PO SCH (09:48)
[2021-12-06] MEDS: BALSAM PERU/CASTOR OIL 56.7 GM OINT...G. TP SCH (09:50)
[2021-12-06] MEDS: NYSTATIN 15 GM TOPICAL POWDER TP SCH ×2 (09:51→21:35)
[2021-12-06] MEDS: INSULIN GLARGINE 100 UNITS/ML 10 ML VIAL SUBCUT SCH ×2 (09:57→21:34)
[2021-12-06 12:00] VITALS: BP_SYST 149
[2021-12-06] MEDS: INSULIN REGULAR, HUMAN 100 UNITS/ML, 10 ML VIAL (humuLIN R) SUBCUT PRN ×3 (13:59→21:33)
[2021-12-06 16:00] VITALS: BP_SYST 135
[2021-12-06 20:00] VITALS: BP_SYST 143
[2021-12-07] VITALS: BP_SYST 125
[2021-12-07 08:00] VITALS: BP_SYST 130
[2021-12-07] MEDS: ASPIRIN 81 MG TABLET(ECOTRIN) PO SCH (08:46)
[2021-12-07] MEDS: ATORVASTATIN 10 MG TABLET PO SCH (08:46)
[2021-12-07] MEDS: CHOLECALCIFEROL (VITAMIN D3) 2,000 UNIT TABLET PO SCH (08:47)
[2021-12-07] MEDS: LACTOBACILLUS RHAMNOSUS GG 1 CAP CAPSULE PO SCH ×2 (08:47→21:37)
[2021-12-07] MEDS: PANTOPRAZOLE SODIUM 40 MG TAB PO SCH (08:47)
[2021-12-07] MEDS: MULTIVITAMINS TAB 1 TABLET PO SCH ×2 (08:47→21:37)
[2021-12-07] MEDS: INSULIN GLARGINE 100 UNITS/ML 10 ML VIAL SUBCUT SCH ×2 (08:51→21:42)
[2021-12-07] MEDS: NYSTATIN 15 GM TOPICAL POWDER TP SCH ×2 (09:18→21:38)
[2021-12-07] MEDS: BALSAM PERU/CASTOR OIL 56.7 GM OINT...G. TP SCH (09:19)
[2021-12-07 12:00] VITALS: BP_SYST 150
[2021-12-07 16:00] VITALS: BP_SYST 128
[2021-12-07] MEDS: INSULIN REGULAR, HUMAN 100 UNITS/ML, 10 ML VIAL (humuLIN R) SUBCUT PRN ×2 (17:01→21:41)
[2021-12-07 20:00] VITALS: BP_SYST 159
[2021-12-08] VITALS (7 sets, daily range): BP systolic 99–136
[2021-12-08] MEDS: PANTOPRAZOLE SODIUM 40 MG TAB PO SCH (08:52)
[2021-12-08] MEDS: ASPIRIN 81 MG TABLET(ECOTRIN) PO SCH (08:53)
[2021-12-08] MEDS: ATORVASTATIN 10 MG TABLET PO SCH (08:53)
[2021-12-08] MEDS: MULTIVITAMINS TAB 1 TABLET PO SCH ×2 (08:53→21:07)
[2021-12-08] MEDS: CHOLECALCIFEROL (VITAMIN D3) 2,000 UNIT TABLET PO SCH (08:53)
[2021-12-08] MEDS: LACTOBACILLUS RHAMNOSUS GG 1 CAP CAPSULE PO SCH ×2 (08:57→21:07)
[2021-12-08] MEDS: BALSAM PERU/CASTOR OIL 56.7 GM OINT...G. TP SCH (09:00)
[2021-12-08] MEDS: NYSTATIN 15 GM TOPICAL POWDER TP SCH ×2 (09:00→21:08)
[2021-12-08] MEDS: INSULIN GLARGINE 100 UNITS/ML 10 ML VIAL SUBCUT SCH ×2 (09:02→21:15)
[2021-12-08] MEDS: INSULIN REGULAR, HUMAN 100 UNITS/ML, 10 ML VIAL (humuLIN R) SUBCUT PRN ×3 (12:02→21:16)
[2021-12-08 20:54] LABS: BASOPHILS # (AUTO) 0.1 K/uL (0.0-0.2); BASOPHILS % (AUTO) 0.4 % (0.0-2.0); EOSINOPHILS # (AUTO) 1.5 K/uL (0.0-0.4); EOSINOPHILS % (AUTO) 10.3 % (0.0-4.0); HEMATOCRIT 38.7 % (36-54); HEMOGLOBIN 12.8 g/dL (14.0-18.0); LYMPHOCYTES # (AUTO) 2.8 K/uL (1.0-5.5); MEAN CORPUSCULAR HEMOGLOBIN 28 pg (27-31); MEAN CORPUSCULAR HGB CONC 33 % (32-36); MEAN CORPUSCULAR VOLUME 85 fL (79.0-98.0); MONOCYTES # (AUTO) 1.6 K/uL (0.0-1.0); MONOCYTES % (AUTO) 11.1 % (1.7-9.3); NEUTROPHILS # (AUTO) 8.6 K/uL (1.8-7.7); NEUTROPHILS % (AUTO) 59.2 % (40.0-70.0); PLATELET COUNT (AUTO) 286 K/uL (130-430); RED BLOOD CELL COUNT(AUTO) 4.57 MIL/uL (4.2-6.2); RED CELL DISTRIBUTION WIDTH 13.8 % (9.0-15.0); WHITE BLOOD COUNT (AUTO) 14.5 K/uL (4.8-10.8)
[2021-12-08 20:58] LABS: ALBUMIN 1.9 g/dL (3.4-4.8); CREATININE 1.26 mg/dL (0.55-1.30); POTASSIUM 4.4 mmol/L (3.5-5.1); TOTAL BILIRUBIN 0.2 mg/dL (0.0-1.0)
[2021-12-08] MEDS: metroNIDAZOLE 500 MG TABLET PO SCH (21:08)
[2021-12-08] MEDS: CEFEPIME 2 GM in D5W 100 ML IV SCH (22:24)
[2021-12-09] VITALS: BP_SYST 155
[2021-12-09] MEDS: metroNIDAZOLE 500 MG TABLET PO SCH ×3 (06:55→21:01)
[2021-12-09 07:30] LABS: ALBUMIN 1.9 g/dL (3.4-4.8); CREATININE 1.05 mg/dL (0.55-1.30); POTASSIUM 4.1 mmol/L (3.5-5.1); TOTAL BILIRUBIN 0.3 mg/dL (0.0-1.0)
[2021-12-09 08:00] VITALS: BP_SYST 131
[2021-12-09 08:08] LABS: HEMATOCRIT 38.6 % (36-54); MEAN CORPUSCULAR HEMOGLOBIN 28 pg (27-31); MEAN CORPUSCULAR HGB CONC 34 % (32-36); MEAN CORPUSCULAR VOLUME 84 fL (79.0-98.0); PLATELET COUNT (AUTO) 269 K/uL (130-430); RED BLOOD CELL COUNT(AUTO) 4.59 MIL/uL (4.2-6.2); RED CELL DISTRIBUTION WIDTH 13.9 % (9.0-15.0); WHITE BLOOD COUNT (AUTO) 14.4 K/uL (4.8-10.8)
[2021-12-09] MEDS: LACTOBACILLUS RHAMNOSUS GG 1 CAP CAPSULE PO SCH ×2 (09:00→21:01)
[2021-12-09] MEDS: PANTOPRAZOLE SODIUM 40 MG TAB PO SCH (09:00)
[2021-12-09] MEDS: ATORVASTATIN 10 MG TABLET PO SCH (09:00)
[2021-12-09] MEDS: CHOLECALCIFEROL (VITAMIN D3) 2,000 UNIT TABLET PO SCH (09:01)
[2021-12-09] MEDS: MULTIVITAMINS TAB 1 TABLET PO SCH ×2 (09:01→21:01)
[2021-12-09] MEDS: ASPIRIN 81 MG TABLET(ECOTRIN) PO SCH (09:01)
[2021-12-09] MEDS: INSULIN GLARGINE 100 UNITS/ML 10 ML VIAL SUBCUT SCH ×2 (09:03→21:19)
[2021-12-09] MEDS: NYSTATIN 15 GM TOPICAL POWDER TP SCH ×2 (09:05→21:20)
[2021-12-09] MEDS: BALSAM PERU/CASTOR OIL 56.7 GM OINT...G. TP SCH (09:05)
[2021-12-09] MEDS: CEFEPIME 2 GM in D5W 100 ML IV SCH ×2 (09:28→21:11)
[2021-12-09 11:30] VITALS: BP_SYST 142
[2021-12-09 12:24] LABS: BASOPHILS % (MANUAL) 0 % (0-2); EOSINOPHILS % (MANUAL) 12 % (0-7); LYMPHOCYTES % (MANUAL) 25 % (20-46); MONOCYTES % (MANUAL) 6 % (0-11)
[2021-12-09] MEDS: INSULIN REGULAR, HUMAN 100 UNITS/ML, 10 ML VIAL (humuLIN R) SUBCUT PRN ×2 (13:42→17:26)
[2021-12-09 16:01] VITALS: BP_SYST 127
[2021-12-09 21:21] VITALS: BP_SYST 105
[2021-12-10 01:37] VITALS: BP_SYST 143
[2021-12-10 04:42] VITALS: BP_SYST 97
[2021-12-10] MEDS: metroNIDAZOLE 500 MG TABLET PO SCH ×3 (05:20→21:27)
[2021-12-10 08:00] VITALS: BP_SYST 130
[2021-12-10] MEDS: ASPIRIN 81 MG TABLET(ECOTRIN) PO SCH (08:31)
[2021-12-10] MEDS: CHOLECALCIFEROL (VITAMIN D3) 2,000 UNIT TABLET PO SCH (08:31)
[2021-12-10] MEDS: MULTIVITAMINS TAB 1 TABLET PO SCH ×2 (08:31→21:27)
[2021-12-10] MEDS: PANTOPRAZOLE SODIUM 40 MG TAB PO SCH (08:31)
[2021-12-10] MEDS: LACTOBACILLUS RHAMNOSUS GG 1 CAP CAPSULE PO SCH ×2 (08:31→21:27)
[2021-12-10] MEDS: ATORVASTATIN 10 MG TABLET PO SCH (08:31)
[2021-12-10] MEDS: INSULIN GLARGINE 100 UNITS/ML 10 ML VIAL SUBCUT SCH ×2 (08:33→21:42)
[2021-12-10] MEDS: BALSAM PERU/CASTOR OIL 56.7 GM OINT...G. TP SCH (08:35)
[2021-12-10] MEDS: NYSTATIN 15 GM TOPICAL POWDER TP SCH ×2 (08:35→21:34)
[2021-12-10] MEDS: CEFEPIME 2 GM in D5W 100 ML IV SCH ×2 (09:04→21:27)
[2021-12-10 12:32] VITALS: BP_SYST 106
[2021-12-10 16:20] VITALS: BP_SYST 123
[2021-12-10] MEDS: INSULIN REGULAR, HUMAN 100 UNITS/ML, 10 ML VIAL (humuLIN R) SUBCUT PRN ×2 (17:26→21:44)
[2021-12-10 20:03] VITALS: BP_SYST 97
[2021-12-11 00:17] VITALS: BP_SYST 126
[2021-12-11] MEDS: metroNIDAZOLE 500 MG TABLET PO SCH (06:08)
[2021-12-11 07:30] VITALS: BP_SYST 134
[2021-12-11 08:29] VITALS: BP_SYST 126
[2021-12-11] MEDS: ATORVASTATIN 10 MG TABLET PO SCH (09:47)
[2021-12-11] MEDS: LACTOBACILLUS RHAMNOSUS GG 1 CAP CAPSULE PO SCH (09:47)
[2021-12-11] MEDS: MULTIVITAMINS TAB 1 TABLET PO SCH (09:47)
[2021-12-11] MEDS: CHOLECALCIFEROL (VITAMIN D3) 2,000 UNIT TABLET PO SCH (09:47)
[2021-12-11] MEDS: ASPIRIN 81 MG TABLET(ECOTRIN) PO SCH (09:47)
[2021-12-11] MEDS: PANTOPRAZOLE SODIUM 40 MG TAB PO SCH (09:48)
[2021-12-11] MEDS: NYSTATIN 15 GM TOPICAL POWDER TP SCH (09:50)
[2021-12-11] MEDS: BALSAM PERU/CASTOR OIL 56.7 GM OINT...G. TP SCH (09:50)
[2021-12-11] MEDS: INSULIN GLARGINE 100 UNITS/ML 10 ML VIAL SUBCUT SCH (10:01)
[2021-12-11] MEDS: CEFEPIME 2 GM in D5W 100 ML IV SCH (10:07)
[2021-12-11 11:23] VITALS: BP_SYST 91
[2021-12-11] MEDS: INSULIN REGULAR, HUMAN 100 UNITS/ML, 10 ML VIAL (humuLIN R) SUBCUT PRN (12:13)
[2021-12-11] MEDS ORDERED: INSU100V9 SUBCUT (12:31)
[2021-12-11] MEDS ORDERED: ACET325T PO (12:31)
[2021-12-11] MEDS ORDERED: SSREG SUBCUT (12:31)
[2021-12-11] MEDS ORDERED: METR-154 PO (12:31)
[2021-12-11] MEDS ORDERED: NYST15PO2 TP (12:31)
[2021-12-11] MEDS ORDERED: PRO40 PO (12:31)
[2021-12-11] MEDS ORDERED: VITD2000 PO (12:31)
[2021-12-11] MEDS ORDERED: MULT400T13 PO (12:31)
[2021-12-11] MEDS ORDERED: Aspirin Ec PO (12:31)
[2021-12-11] MEDS ORDERED: LACT1CAP57 PO (12:31)
[2021-12-11] MEDS ORDERED: VENELEX60G TP (12:31)
[2021-12-11] MEDS ORDERED: IPRA3AMP9 INH (12:31)
[2021-12-11] MEDS ORDERED: BLOO-1360 XX (12:31)
[2021-12-11] MEDS ORDERED: LIP10 PO (12:31)
[2021-12-11 13:24] VITALS: BP_SYST 141
[2021-12-11 15:30] VITALS: BP_SYST 139
[2021-12-11] MEDS ORDERED: AMOXICILLIN/CLAVULANATE POTASSIUM 875 MG TABLET PO SCH (21:00)
== END 2021-12-11 15:20 | DRG 720 ==
LOC: SED 22:53 → STU 11-10 02:24 → SMU 11-29 23:12
PROVIDERS: ADMIT Internal Medicine; ATTEND Internal Medicine
DX: A41.2 Sepsis due to unspecified staphylococcus (principal); N17.0 Acute kidney failure with tubular necrosis; J96.01 Acute respiratory failure with hypoxia; J85.0 Gangrene and necrosis of lung; E43 Unspecified severe protein-calorie malnutrition; D69.6 Thrombocytopenia, unspecified; G93.41 Metabolic encephalopathy; E87.1 Hypo-osmolality and hyponatremia; N30.90 Cystitis, unspecified without hematuria; E87.0 Hyperosmolality and hypernatremia; E11.22 Type 2 diabetes mellitus with diabetic chronic kidney disease; E11.51 Type 2 diabetes mellitus with diabetic peripheral angiopathy without gangrene; B96.20 Unspecified Escherichia coli [E. coli] as the cause of diseases classified elsewhere; D64.9 Anemia, unspecified; E11.65 Type 2 diabetes mellitus with hyperglycemia; E86.0 Dehydration; F17.200 Nicotine dependence, unspecified, uncomplicated; I12.9 Hypertensive chronic kidney disease with stage 1 through stage 4 chronic kidney disease, or unspecified chronic kidney disease; E11.21 Type 2 diabetes mellitus with diabetic nephropathy; I45.10 Unspecified right bundle-branch block; L89.159 Pressure ulcer of sacral region, unspecified stage; L03.116 Cellulitis of left lower limb; L03.115 Cellulitis of right lower limb; N13.9 Obstructive and reflux uropathy, unspecified; I63.81 Other cerebral infarction due to occlusion or stenosis of small artery; K42.9 Umbilical hernia without obstruction or gangrene; M62.82 Rhabdomyolysis; N18.2 Chronic kidney disease, stage 2 (mild); Z20.822 Contact with and (suspected) exposure to COVID-19; Z63.5 Disruption of family by separation and divorce; Z86.73 Personal history of transient ischemic attack (TIA), and cerebral infarction without residual deficits; Z91.14 Patient's other noncompliance with medication regimen; Z91.19 Patient's noncompliance with other medical treatment and regimen; Z79.899 Other long term (current) drug therapy; Z59.01 Sheltered homelessness; Z68.24 Body mass index [BMI] 24.0-24.9, adult; B96.89 Other specified bacterial agents as the cause of diseases classified elsewhere
CPT/HCPCS: 36415; 70450-TC; 70551; 71045; 71250-TC; 76376; 76700-TC; 76770; 78226; 80048; 80053; 80061; 80307; 81000; 82009; 82272; 82550; 82553; 82607; 82668; 82728; 82746; 82962; 83540; 83550; 83605; 83735; 83880; 84484; 85007; 85025; 85027; 85651-TC; 86140; 86480; 86635; 86886; 86900; 86901; 87040; 87081; 87086; 92610-GN; 93005; 93306; 93880; 95816; 96361; 96365; 96375; 97110-GP; 97116-GP; 97163-GP; 97530-GP; 99291; A9537; C9113; G0480; G0481; G0482; J0456; J0692; J0696; J1815; J2020; J2405; J2543; J3480; J3490; J7050; J7060